=== PATIENT | male | born 1960 | race Caucasian/White ===

== ENCOUNTER 2017-02-12 14:57 | Inpatient (IN) | payer BC, OTHER ==
[~2017-02-12] VITALS: Ht 172.7 cm; Wt 87.8 kg
[2017-02-12] VITALS (7 sets, daily range): BP systolic 125–141; BP diastolic 82–96
[2017-02-12] MEDS ORDERED: MULT-1061 PO (15:09)
[2017-02-12] MEDS ORDERED: FISH1CAP15 PO (15:09)
[2017-02-12] MEDS ORDERED: DILT360C36 (15:09)
[2017-02-12] MEDS ORDERED: ASPIRIN 81 MG CHEW (CHILDREN'S ASA) PO ONE (15:15)
[2017-02-12 15:17] LABS: BASOPHILS % (AUTO) 0 % (0-10); EOSINOPHILS # (AUTO) 0.1 10^3/uL (0.0-0.3); EOSINOPHILS % (AUTO) 1 % (0-10); LYMPHOCYTES # (AUTO) 1.3 X 10^3 (1.0-4.0); LYMPHOCYTES % (AUTO) 18 % (12-44); MEAN CORPUSCULAR HEMOGLOBIN 29 PG (25-34); MEAN CORPUSCULAR HGB CONC 34 G/DL (32-36); MEAN CORPUSCULAR VOLUME 86 FL (80-99); MEAN PLATELET VOLUME 9.9 FL (7.4-10.4); MONOCYTES # (AUTO) 0.6 X 10^3 (0.0-1.0); MONOCYTES % (AUTO) 9 % (0-12); NEUTROPHILS % (AUTO) 72 % (42-75); PLATELET COUNT 271 10^3/uL (130-400); RED BLOOD COUNT 4.89 10^6/uL (4.35-5.85)
[2017-02-12 15:27] LABS: PROTHROMBIN TIME PATIENT 13.1 SEC (12.2-14.7)
--- NOTE | 2017-02-12 15:29 | Diagnostic Imaging Report ---
INDICATION: Chest tightness, shortness of air with exertion. TECHNIQUE: Single view chest 3:22 PM. CORRELATION STUDY: None FINDINGS: Heart size borderline. Vasculature within normal limits. The lungs are clear with no consolidating infiltrate. There is no significant effusion or pneumothorax. IMPRESSION: 1. Borderline heart size. Negative for acute abnormality. Dictated by: Dictated on workstation # [id number]
--- NOTE | 2017-02-12 15:34 | ED Chest Pain ---
General Chief Complaint: Chest Pain Stated Complaint: CHEST PAIN/SOA Nursing Triage Note: AMBULATED TO ROOM 03 WITH COMPLAINTS OF CHEST PAIN WITH EXERTION FOR OVER 1 MONTH BUT TODAY WAS CATCHING CALVES AND STARTED HAVING CHEST TIGHTNESS. Nursing Sepsis Screen: No Definite Risk Source: patient Exam Limitations: no limitations History of Present Illness Time seen by provider: 14:59 Initial Comments Here with report of chest pain on exertion that has been intermittent over the last month that is associated with central chest pressure and shortness of breath. He has strong family history and that his father had his first heart attack when he was 40 and ultimately at 63 from heart related problems. Patient denies nausea, vomiting, weakness or sweating. Denies other illness type symptoms. Timing/Duration: 1 week, getting worse, intermittent Severity/Quality: moderate, pressure, tightness Location: central Radiation: no radiation Activities at Onset: activity Prior CP/Workup: no prior chest pain Modifying Factors: worse with exercise, improves with rest ASA po PULLMAN CLERK: No NTG SL PULLMAN CLERK: No Associated Symptoms: No abdominal pain, No diaphoresis, No fever/chills, No nausea/vomiting, shortness of breath, No weakness Allergies and Home Medications Allergies Coded Allergies: No Known Drug Allergies (Unverified , 02/12/17) Home Medications Diltiazem HCl 360 Mg Cap.er.24h, #30 (Reported) Fish Oil/Dha/Epa 1 Each Capsule, 1,200 MG PO DAILY, (Reported) Multivit-Min/FA/Lycopen/Lutein 1 Each Tablet, 1 EACH PO DAILY, (Reported) Review of Systems Constitutional: see HPI, No chills, No fever EENTM: No Symptoms Reported Respiratory: See HPI, Denies Cough, SOA With Exertion Cardiovascular: Chest Pain, Denies Palpitations Gastrointestinal: No Symptoms Reported Genitourinary: No Symptoms Reported Musculoskeletal: no symptoms reported Skin: no symptoms reported All Other Systems Reviewed Negative Unless Noted: Yes Past Segseev-Epvggh-Zmbfmo Hx Patient Social History Alcohol Use: Occasionally Uses Recreational Drug Use: No Smoking Status: Never a Smoker Recent Foreign Travel: No Contact w/Someone Who Travel: No Recent Infectious Disease Expo: No Recent Hopitalizations: No Seasonal Allergies Seasonal Allergies: Yes Surgeries HX Surgeries: Yes (X4 BACK) Surgeries: Appendectomy Respiratory Hx Respiratory Disorders: No Cardiovascular Hx Cardiac Disorders: Yes Cardiac Disorders: Hypertension Neurological Hx Neurological Disorders: No Genitourinary Hx Genitourinary Disorders: No Gastrointestinal Hx Gastrointestinal Disorders: No Musculoskeletal Hx Musculoskeletal Disorders: Yes Musculoskeletal Disorders: Back Injury, Chronic Back Pain Endocrine Hx Endocrine Disorders: No HEENT HX ENT Disorders: No Cancer Hx Cancer: No Psychosocial Hx Psychiatric Problems: No Reviewed Nursing Assessment Reviewed/Agree w Nursing PMH: Yes Family Medical History Significant Family History: No Pertinent Family Hx Physical Exam Vital Signs Vital Sign - Last 12Hours 02/12/17 15:03 Temp 98.0 Pulse 90 Resp 16 B/P (MAP) 156/109 Pulse Ox 96 Capillary Refill : Less Than 3 Seconds General Appearance: No Apparent Distress, WD/WN Neck: Non Tender, Supple Respiratory: Lungs Clear, Normal Breath Sounds Cardiovascular: Regular Rate, Rhythm, No Murmur Gastrointestinal: Non Tender, Soft Extremity: Non Tender, No Calf Tenderness Neurologic/Psychiatric: Alert, Oriented x3 Skin: Normal Color, Warm/Dry Progress/Results/Core Measures Results/Orders Lab Results Laboratory Tests Test 02/12/17 15:12 Range/Units White Blood Count 7.0 4.3-11.0 10^3/uL Red Blood Count 4.89 4.35-5.85 10^6/uL Hemoglobin 14.1 13.3-17.7 G/DL Hematocrit 42 40-54 % Mean Corpuscular Volume 86 80-99 FL Mean Corpuscular Hemoglobin 29 25-34 PG Mean Corpuscular Hemoglobin Concent 34 32-36 G/DL Red Cell Distribution Width 13.0 10.0-14.5 % Platelet Count 271 130-400 10^3/uL Mean Platelet Volume 9.9 7.4-10.4 FL Neutrophils (%) (Auto) 72 42-75 % Lymphocytes (%) (Auto) 18 12-44 % Monocytes (%) (Auto) 9 0-12 % Eosinophils (%) (Auto) 1 0-10 % Basophils (%) (Auto) 0 0-10 % Neutrophils # (Auto) 5.0 1.8-7.8 X 10^3 Lymphocytes # (Auto) 1.3 1.0-4.0 X 10^3 Monocytes # (Auto) 0.6 0.0-1.0 X 10^3 Eosinophils # (Auto) 0.1 0.0-0.3 10^3/uL Basophils # (Auto) 0.0 0.0-0.1 10^3/uL Prothrombin Time 13.1 12.2-14.7 SEC INR Comment 1.0 0.8-1.4 Activated Partial Thromboplast Time 34 24-35 SEC D-Dimer 0.31 0.00-0.49 UG/ML Sodium Level 142 135-145 MMOL/L Potassium Level 4.0 3.6-5.0 MMOL/L Chloride Level 108 H 98-107 MMOL/L Carbon Dioxide Level 24 21-32 MMOL/L Anion Gap 10 5-14 MMOL/L Blood Urea Nitrogen 20 H 7-18 MG/DL Creatinine 1.28 0.60-1.30 MG/DL Estimat Glomerular Filtration Rate 58 BUN/Creatinine Ratio 16 Glucose Level 91 70-105 MG/DL Calcium Level 9.3 8.5-10.1 MG/DL Magnesium Level 2.4 1.8-2.4 MG/DL Total Bilirubin 0.3 0.1-1.0 MG/DL Aspartate Amino Transf (AST/SGOT) 17 5-34 U/L Alanine Aminotransferase (ALT/SGPT) 21 0-55 U/L Alkaline Phosphatase 61 40-136 U/L Myoglobin 64.7 10.0-92.0 NG/ML Troponin I < 0.30 <0.30 NG/ML B-Type Natriuretic Peptide < 10.0 <100.0 PG/ML Total Protein 7.3 6.4-8.2 G/DL Albumin 4.4 3.2-4.5 G/DL Lipase 28 8-78 U/L My Orders Orders - GALE GRIGGS MD Cbc With Automated Diff (02/12/17 15:07) Magnesium (02/12/17 15:07) Chest 1 View, Ap/Pa Only (02/12/17 15:07) Ekg Tracing (02/12/17 15:07) Cardiac Profile 1 (02/12/17 15:07) Comprehensive Metabolic Panel (02/12/17 15:07) Myoglobin Serum (02/12/17 15:07) Protime With Inr (02/12/17 15:07) Partial Thromboplastin Time (02/12/17 15:07) O2 (02/12/17 15:07) Monitor-Rhythm Ecg Trace Only (02/12/17 15:07) Lipid Panel (02/13/17 06:00) Aspirin Chewable Tablet (Baby Aspirin Ch (02/12/17 15:15) Saline Lock/Iv-Start (02/12/17 15:07) Lipase (02/12/17 15:07) BNP (02/12/17 15:07) Fibrin Degradation Products (02/12/17 15:07) Medications Given in ED Current Medications Medications Dose Ordered Sig/Dominga Route Start Time Stop Time Status Last Admin Dose Admin Aspirin 324 mg ONCE ONCE PO 02/12/17 15:15 02/12/17 15:16 DC 02/12/17 15:40 324 MG Vital Signs/I&O Vital Sign - Last 12Hours 02/12/17 15:03 Temp 98.0 Pulse 90 Resp 16 B/P (MAP) 156/109 Pulse Ox 96 Blood Pressure Mean: 125 Progress Note : Progress Note Seen and evaluated. IV, labs, EKG and chest x-ray ordered. ASA 324 mg by mouth given. Patient without pain so nitroglycerin withheld. Monitor patient. 1604 labs and findings reviewed and reviewed with patient. Patient has significant family history which is concerning and would benefit from further evaluation. Patient is high-risk. Case discussed with Dr. Oden who accepts patient for admission. Case discussed with Dr. Simpson who accepts patient in consult. Patient and family agree with admission. Admit, observation status. ECG Initial ECG Impression Date: Feb 12, 2017 Initial ECG Impression Time: 15:05 Initial ECG Rate: 90 Initial ECG Rhythm: Normal Sinus Initial ECG Comparisson: No Previous ECG Available Comment Sinus rhythm with left anterior fascicular block. Left axis deviation. No evidence of ST elevation FL. No previous available for comparison. Interpreted by me. Diagnostic Imaging Diagonstic Imaging: Xray Plain Films/CT/US/NM/MRI: chest Comments NAME: [facility] REC#: [id number] PT STATUS: REG ER : 1960 PHYSICIAN: GALE GRIGGS MD ADMIT DATE: 02/12/17/ER Signed Date of Exam: 02/12/17 CHEST 1 VIEW, AP/PA ONLY INDICATION: Chest tightness, shortness of air with exertion. TECHNIQUE: Single view chest 3:22 PM. CORRELATION STUDY: None FINDINGS: Heart size borderline. Vasculature within normal limits. The lungs are clear with no consolidating infiltrate. There is no significant effusion or pneumothorax. IMPRESSION: 1. Borderline heart size. Negative for acute abnormality. Dictated by: Dictated on workstation # [id number] Dict: 02/12/17 1526 Trans: 02/12/17 1526 Interpreted by: LUISITO ATKINSON DO Electronically signed by: LUISITO ATKINSON DO 02/12/17 1526 Departure Communication Time/Spoke to Admitting Phy: 16:04 Time/Spoke to Consulting Physi: 16:06 Impression Impression: Primary Impression: Chest pain Qualified Codes: R07.2 - Precordial pain Disposition: ADMITTED INPATIENT Condition: Stable Decision to Admit Reason: Admit from ER (General) Decision to Admit/Date: Feb 12, 2017 Time/Decision to Admit Time: 16:04 GALE GRIGGS MD Feb 12, 2017 15:34
[2017-02-12 15:36] LABS: ALANINE AMINOTRANSFERASE 21 U/L (0-55); ALBUMIN 4.4 G/DL (3.2-4.5); ANION GAP 10 MMOL/L (5-14); ASPARTATE AMINO TRANSFERASE 17 U/L (5-34); BILIRUBIN,TOTAL 0.3 MG/DL (0.1-1.0); BLOOD UREA NITROGEN 20 MG/DL (7-18); BUN/CREATININE RATIO 16; CALCIUM 9.3 MG/DL (8.5-10.1); CARBON DIOXIDE 24 MMOL/L (21-32); CHLORIDE 108 MMOL/L (98-107); CREATININE SERUM 1.28 MG/DL (0.60-1.30); GFR ESTIMATED 58; GLUCOSE 91 MG/DL (70-105); LIPASE 28 U/L (8-78); MAGNESIUM 2.4 MG/DL (1.8-2.4); SODIUM 142 MMOL/L (135-145); TOTAL PROTEIN 7.3 G/DL (6.4-8.2)
[2017-02-12 15:42] LABS: MYOGLOBIN SERUM 64.7 NG/ML (10.0-92.0)
--- NOTE | 2017-02-12 17:01 | Cardiology History & Physical ---
HPI-Cardiology Cardiology Consultation Date of Consultation 02/12/17 Date of Admission Indication: chest pain HPI 56 years old gentleman with history of hypertension, hyperlipidemia, strong family history of heart disease, started having recurrent episodes of chest pain over the last month described as dull achiness in the retrosternal area exacerbated by exertion, relieved by rest, over the last week his pain became significantly worse. Today had significant chest pain with minimal exertion associated with shortness of breath and diaphoresis. Patient became concerned and came into the emergency room reported that the pain has relieved with resting but it has been occurring more frequently and lasting longer with less exercise. I discussed with him the management plan he has multiple risk factors discussed the possibility of stress test versus cardiac catheterization , patient and his and fairly anxious, due to the strong family history of heart disease with his father who had heart attack in his 40s and multiple cousins with heart attacks patient requested to proceed with cardiac catheterization. PMH-Cardiology Seasonal Allergies Seasonal Allergies: Yes Surgeries HX Surgeries: Yes (X4 BACK) Respiratory Hx Respiratory Disorders: No Cardiovascular Hx Cardiovascular Disorders: Yes Neurological Hx Neurological Disorders: No Genitourinary Hx Genitourinary Disorders: No Gastrointestinal Hx Gastrointestinal Disorders: No Musculoskeletal Hx Musculoskeletal Disorders: Yes Musculoskeletal Disorders: Back Injury, Chronic Back Pain Endocrine Hx Endocrine Disorders: No HEENT HX ENT Disorders: No Cancer Hx Cancer: No Psychosocial Hx Psychiatric Problems: No Other PMHx Other PMHx: past medical history as discussed below Social History Patient Social History Marrital Status: Alcohol Use: Occasionally Uses Recreational Drug Use: No Smoking: Never smoker Recent Foreign Travel: No Contact w/other who traveled: No Recent Infectious Disease Expo: No Family Hx Significant Family History: No Pertinent Family Hx Other Strong family history of heart disease with father had myocardial infarction in his 40s, multiple family members with heart disease and heart attacks ROS-Cardiology Review of Systems General: No Chills, No Night Sweats, No Fatigue, Malaise, No Appetite HEENT: No Head Aches, No Visual Changes, No Eye Pain, No Ear Pain, No Dysphasia , No Sinus Congestion, No Post Nasal Drip, No Sore Throat Pulmonary: Dyspnea, No Cough, No Pleuritic Chest Pain Cardiovascular: Chest Pain, No: Edema, Lt Headedness, Orthopnea, Palpitations, Paroxysmal Noc. Dyspnea Gastrointestinal: No: Abdominal Pain, Constipation, Diarrhea, Hematochezia, Melena, Nausea, Vomiting Genitourinary: No Dysuria, No Frequency, No Incontinence, No Hematuria, No Retention Musculoskeletal: No: arm pain, back pain, foot pain, hand pain, leg pain, neck pain, shoulder pain Neurological: No: Change in speech, Confusion, Incoordination, Numbness, Seizures, Weakness Home Medications & Allergies Allergies: Coded Allergies: No Known Drug Allergies (Unverified , 02/12/17) Home Medication List Reviewed: Yes Exam-Cardiology Vital Signs Vital Signs Date Time Temp Pulse Resp B/P (MAP) Pulse Ox O2 Delivery O2 Flow Rate FiO2 02/12/17 15:03 98.0 90 16 156/109 96 Exam General Appearance: Alert, Oriented X3, Cooperative, No Acute Distress HEENT: Atraumatic, PERRLA Respiratory: Clear to Auscultation, Normal Air Movement Cardiovascular: Regular Rate, Normal S1, Normal S2, No Murmurs, Other (S3 present) Abdominal: Normal Bowel Sounds, Soft, No Tenderness, No Hepatosplenomegaly, No Masses Extremities: No Clubbing, No Cyanosis, No Edema, Normal Pulses, No Tenderness/ Swelling Skin: No Rashes, No Breakdown, No Significant Lesion Neuro: Normal Gait, Normal Speech, Strength at 5/5 X4 Ext, Normal Tone, Sensation Intact Psych/Mental Status: Mental Status NL, Mood NL Results Labs Labs Laboratory Tests 02/12/17 15:12: White Blood Count 7.0, Red Blood Count 4.89, Hemoglobin 14.1, Hematocrit 42, Mean Corpuscular Volume 86, Mean Corpuscular Hemoglobin 29, Mean Corpuscular Hemoglobin Concent 34, Red Cell Distribution Width 13.0, Platelet Count 271, Mean Platelet Volume 9.9, Neutrophils (%) (Auto) 72, Lymphocytes (%) (Auto) 18, Monocytes (%) (Auto) 9, Eosinophils (%) (Auto) 1, Basophils (%) (Auto) 0, Neutrophils # (Auto) 5.0, Lymphocytes # (Auto) 1.3, Monocytes # (Auto) 0.6, Eosinophils # (Auto) 0.1, Basophils # (Auto) 0.0, Prothrombin Time 13.1, INR Comment 1.0, Activated Partial Thromboplast Time 34, D-Dimer 0.31, Sodium Level 142, Potassium Level 4.0, Chloride Level 108H, Carbon Dioxide Level 24, Anion Gap 10, Blood Urea Nitrogen 20H, Creatinine 1.28, Estimat Glomerular Filtration Rate 58, BUN/Creatinine Ratio 16, Glucose Level 91, Calcium Level 9.3, Magnesium Level 2.4, Total Bilirubin 0.3, Aspartate Amino Transf (AST/SGOT) 17, Alanine Aminotransferase (ALT/SGPT) 21, Alkaline Phosphatase 61, Myoglobin 64.7 , Troponin I < 0.30, B-Type Natriuretic Peptide < 10.0, Total Protein 7.3, Albumin 4.4, Lipase 28 A/P-Cardiology Admission Diagnosis Unstable angina Coronary artery disease Hypertension Hyperlipidemia Family history of heart disease Assessment/Plan Unstable angina, accelerating angina, current enzymes and EKG are normal. Patient is having chest pain with minimal exertion, nonreproducible pain suggestive of coronary artery disease multiple risk factors, discussed in length the management plan possible history of stress test versus cardiac catheterization, explained both options benefit and expected results, patient and his requested to proceed with cardiac catheterization, procedure was explained in length all pros and cons were explained. I will proceed with the procedure today. Coronary artery disease, Hypertension, restart home medication monitor blood pressure Hyperlipidemia, monitor lipids Strong family history of heart disease History of appendectomy, history of back surgery about 10 years ago Clinical Quality Measures AMI/AHF: ASA po Prior to arrival: ALDO Murphy MD Feb 12, 2017 17:01
--- NOTE | 2017-02-12 17:02 | Cardiac Procedure Note-CS/ASA ---
Pre-Procedure Note Pre-Op Procedure Note H&P Reviewed The H&P was reviewed, patient examined and no changes noted. Date H&P Reviewed: Feb 12, 2017 Time H&P Reviewed: 17:02 Conscious Sedation Pre-Proced Time Reviewed: 17:02 ASA Class: 3 Airway Mallampati Classification: ([place] appropriate class) I. II. III, IV Lungs Heart ASA score ASA 1: a normal healthy patient ASA 2: a patient with a mild systemic disease (mid diabetes, controlled hypertension, obesity x ASA 3: a patient with a severe systemic disease that limits activity (angina , COPD, prior Myocardial infarction) ASA 4: a patient with an incapacitating disease that is a constant threat to life (CHF, renal failure) ASA 5: a moribund patient not expected to survive 24 hrs. (ruptured aneurysm) ASA 6: a declared brain patient whose organs are being harvested. For emergent operations, add the letter E after the classification Grade 3 Sedation Plan: Analgesia, Amnesia, Plan communicated to team members, Discussed options with patient/fam, Discussed risks with patient/fam Note The patient is an appropriate candidate to undergo the planned procedure, sedation, and anesthesia. The patient immediately re-assessed prior to indication. ALDO HAMMER MD Feb 12, 2017 17:02
[2017-02-12] MEDS ORDERED: LIDOCAINE 1% INJ 20 ML (XYLOCAINE) VIAL ONE (17:17)
[2017-02-12] MEDS ORDERED: NS IV 1000 ML 1,000 ML ONE (17:17)
[2017-02-12] MEDS ORDERED: fentaNYL INJECTION 100 MCG/2 ML AMP ONE (17:17)
[2017-02-12] MEDS ORDERED: HEParin (CATH LAB) 2,000 ML IV ONE (17:17)
[2017-02-12] MEDS ORDERED: MIDAZOLAM 5 MG/5 ML (VERSED) VIAL ONE (17:17)
[2017-02-12] MEDS ORDERED: HEParin 1000 UNIT/ML (10ML VIAL) FOR BOLUS ONE (17:19)
[2017-02-12] MEDS ORDERED: NITROGLYCERIN DRIP 25 MG/D5W 250 ML IV ONE (17:20)
[2017-02-12] MEDS ORDERED: EPTIFIBATIDE DRIP 100 ML IV ONE (17:31)
[2017-02-12] MEDS ORDERED: EPTIFIBATIDE BOLUS 20 ML IV ONE (17:33)
[2017-02-12] MEDS ORDERED: TICAGRELOR 90 MG TABLET (BRILINTA) PO ONE (17:47)
[2017-02-12] MEDS ORDERED: NS IV 1000 ML 1,000 ML IV SCH (17:50)
[2017-02-12] MEDS ORDERED: ISOSORBIDE MONONITRATE 30 MG (IMDUR) TAB PO NR (18:00)
[2017-02-12] MEDS ORDERED: PATIENT MAY USE OWN MEDS, ALL PO SCH (18:00)
[2017-02-12] MEDS ORDERED: DILT360C40 PO (19:06)
[2017-02-12] MEDS ORDERED: CATHETER FLUSH 10 ML SYR IV PRN (20:45)
[2017-02-12] MEDS: ATORVASTATIN 80 MG (LIPITOR) TABLET PO SCH (22:30)
[2017-02-12] MEDS: TICAGRELOR 90 MG TABLET (BRILINTA) PO SCH (22:30)
[2017-02-13] VITALS (11 sets, daily range): BP systolic 111–134; BP diastolic 71–98
[2017-02-13 04:20] LABS: MEAN PLATELET VOLUME 10.4 FL (7.4-10.4); RED BLOOD COUNT 4.12 10^6/uL (4.35-5.85); RED CELL DISTRIBUTION WIDTH 12.9 % (10.0-14.5); WHITE BLOOD COUNT 7.3 10^3/uL (4.3-11.0)
[2017-02-13 04:49] LABS: ANION GAP 9 MMOL/L (5-14); BLOOD UREA NITROGEN 19 MG/DL (7-18); BUN/CREATININE RATIO 20; CALCIUM 8.3 MG/DL (8.5-10.1); CARBON DIOXIDE 23 MMOL/L (21-32); CHLORIDE 110 MMOL/L (98-107); CHOLESTEROL 215 MG/DL (< 200); CREATININE SERUM 0.95 MG/DL (0.60-1.30); DIRECT LDL 158 MG/DL (1-129); GFR ESTIMATED > 60; GLUCOSE 100 MG/DL (70-105); POTASSIUM 3.8 MMOL/L (3.6-5.0); SODIUM 142 MMOL/L (135-145); TRIGLYCERIDES 150 MG/DL (<150); VLDL CHOLESTEROL 30 MG/DL (5-40)
[2017-02-13 05:03] LABS: TROPONIN I 0.76 NG/ML (<0.30)
[2017-02-13] MEDS ORDERED: POTASSIUM CL 10MEQ/50ML IVPB 50 ML IV SCH (06:00)
[2017-02-13] MEDS ORDERED: MAGNESIUM 1 GM/100 ML IVPB 100 ML IV SCH (06:00)
[2017-02-13] MEDS: KCL 20 MEQ TAB (K-DUR) PO SCH (06:38)
--- NOTE | 2017-02-13 07:17 | Cardiology Progress Note ---
Subjective Subjective/Events-last exam patient is laying down in bed, feeling better, no further episodes of chest pain , groin is healing well. No shortness of breath or palpitation. Review of Systems General: No Chills, No Night Sweats, No Fatigue, No Malaise, No Appetite, No Other HEENT: No Head Aches, No Visual Changes, No Eye Pain, No Ear Pain, No Dysphasia , No Sinus Congestion, No Post Nasal Drip, No Sore Throat, No Other Pulmonary: No Dyspnea, No Cough, No Pleuritic Chest Pain, No Other Cardiovascular: No: Chest Pain, Edema, Lt Headedness, Orthopnea, Other, Palpitations, Paroxysmal Noc. Dyspnea Objective-Cardiology Exam Last Set of Vital Signs Vital Signs 02/12/17 02/12/17 02/13/17 18:30 22:00 06:00 Temp 97.2 Pulse 47 Resp 16 B/P (MAP) 119/93 Pulse Ox 99 O2 Delivery Room Air Capillary Refill : Less Than 3 Seconds I&O Bad tableGeneral: Alert, Oriented X3, Cooperative, No Acute Distress HEENT: Atraumatic, PERRLA Neck: Supple, No JVD Lungs: Clear to Auscultation, Normal Air Movement Heart: Regular Rate, Normal S1, Normal S2, No Murmurs, Other (S3 present) Abdomen: Normal Bowel Sounds, Soft, No Tenderness, No Hepatosplenomegaly, No Masses Extremities: No Clubbing, No Cyanosis, No Edema, Normal Pulses, No Tenderness/ Swelling Skin: No Rashes, No Breakdown, No Significant Lesion Neuro: Normal Gait, Normal Speech, Strength at 5/5 X4 Ext, Normal Tone, Sensation Intact Psych/Mental Status: Mental Status NL, Mood NL Results Lab Laboratory Tests 02/12/17 15:12 02/13/17 03:40 A/P-Cardiology Admission Diagnosis Unstable angina Coronary artery disease Hypertension Hyperlipidemia Family history of heart disease Assessment/Plan Unstable angina, non-ST elevation myocardial infarction, status post emergency cardiac catheterization with complex intervention, large stent to the LAD using 3.023 mm Xience Alpine deployed to the ostium/proximal LAD with excellent results. expanded to 3.5 mm with good results. Still having a lesion in the distal right coronary artery that is a smaller artery which will be evaluated in about a week. I will monitor at this time. Coronary artery disease, status post cardiac catheterization as described above. Continue to monitor, no further episodes of chest pain was reported Bradycardia, sick sinus syndrome exacerbated by beta blockers, I will change Toprol to Lopressor 12.5 mg twice daily and monitor his tolerance and response. Hypertension, continue on current medication monitor blood pressure Hyperlipidemia, started on Lipitor 80 mg daily. Continue to monitor Strong family history of heart disease History of appendectomy, history of back surgery about 10 years ago Clinical Quality Measures AMI/AHF: ASA po Prior to arrival: ALDO Murphy MD Feb 13, 2017 07:17
--- NOTE | 2017-02-13 09:06 | CARDIAC CATHETERIZATION ---
DATE OF SERVICE: 02/12/2017 BRIEF HISTORY: The patient was admitted through the emergency room with unstable angina, he was brought for emergency cardiac catheterization. PROCEDURE NOTE: After explaining the procedure to the patient, all pros and cons were explained, all questions were answered. The patient signed the consent and he was placed in the cardiac catheterization laboratory. Right groin was prepped in a sterile fashion. Local anesthesia applied to the right groin. A 6-Sloven[place] sheath was placed in the right femoral artery. A combination of right and left Erika' catheters were used to explore the right and left coronary systems. Multiple views were obtained. Pigtail catheter advanced to the left ventricular cavity. Left ventriculogram was done. Pullback LV to aorta was done. Pressure was measured at that time. The patient was noted to have 99% proximal LAD stenosis. I decided to proceed with percutaneous invention. The patient was given 5000 units of heparin. A 3.5 guide was advanced to the left main, then BMW wire was advanced through the LAD and parked distally. Initial inflation as with 2.5 x 20 mm Emerge balloon. There was a ruptured plaque. The patient had ST elevation. Additional 2000 units of heparin and double bolus of Integrilin and Integrilin drip was initiated. Then I did multiple inflations of the balloon and then proceeded with placement of 3.0 x 23 mm Xience Alpine stent deployed under 15 atmospheres. The patient continued to have ST elevation with each balloon inflation. The stent was well opposed but I was concerned about the mid and distal portion of that stent. I proceeded with advancement of an NC Quantum balloon 3.5 x 20 mm placed, inflated up to 3.6 mm with multiple inflations. With each inflation, there was worsening of ST elevation. At the end of the balloon, the patient was given intracoronary nitroglycerin again and repeat angiogram showed excellent results, no residual stenosis. At the end of the procedure, sheath was removed. Mynx device deployed, hemostasis achieved. TOTAL CONTRAST USED: 200 mL. TOTAL RADIATION TIME: 1577 milligray. FINDINGS: ANATOMY: 1. Left main coronary artery is bifurcating into a left anterior descending and left circumflex artery with no obstructive disease. 2. Left anterior descending artery has 99% proximal/ostial stenosis. Successful deployment of 3.0 x 23 mm Xience Alpine stent expanded to 3.6 mm with excellent results. 3. Left circumflex artery is a large dominant artery with mild nonobstructive disease 4. Right coronary artery is nondominant artery with 70% stenosis distally. 5. Left ventriculogram was done in the right anterior oblique position. Left ventricle is normal in size with normal systolic function, estimated ejection fraction 60%. CONCLUSION: 1. Subtotal occlusion of the left anterior descending with 99% stenosis with eccentric plaque and ulcerated plaque. Successful balloon angioplasty, then deployment of drug-eluting stent Xience Alpine 3.0 x 23 mm expanded to 3.6 mm at the ostium and proximal left anterior descending with excellent results. No residual stenosis. 2. 70% distal right coronary artery stenosis, small artery, nondominant artery which will require evaluation later with possible intervention. 3. Large dominant circumflex artery with mild disease, nonobstructive disease. 4. Normal left ventricular size and systolic function, estimated ejection fraction 60%. DISCUSSION AND RECOMMENDATIONS: I will continue maximizing medical therapy. Further recommendation will follow based on his progression. Job ID: [id number] DocumentID: [id number] Dictated Date: 02/12/2017 18:01:15 Assembly Leader Date: 02/13/2017 09:06:28 Dictated By: ALDO HAMMER MD
[2017-02-13] MEDS: ASPIRIN E.C. 81 MG (ECOTRIN) TAB PO SCH (09:23)
[2017-02-13] MEDS: TICAGRELOR 90 MG TABLET (BRILINTA) PO SCH ×2 (09:23→21:11)
[2017-02-13] MEDS: ISOSORBIDE MONONITRATE 30 MG (IMDUR) TAB PO SCH (09:23)
[2017-02-13] MEDS: meTOprolol TARTRATE 25 MG (LOPRESSOR) TABLET PO SCH ×2 (09:23→21:11)
[2017-02-13] MEDS: ATORVASTATIN 80 MG (LIPITOR) TABLET PO SCH (21:10)
[2017-02-14] VITALS: BP 112/86
[2017-02-14 04:00] VITALS: BP 132/90
[2017-02-14 04:17] LABS: BASOPHILS % (AUTO) 0 % (0-10); EOSINOPHILS # (AUTO) 0.1 10^3/uL (0.0-0.3); EOSINOPHILS % (AUTO) 1 % (0-10); LYMPHOCYTES # (AUTO) 1.5 X 10^3 (1.0-4.0); LYMPHOCYTES % (AUTO) 19 % (12-44); MEAN CORPUSCULAR HEMOGLOBIN 29 PG (25-34); MEAN CORPUSCULAR HGB CONC 33 G/DL (32-36); MEAN CORPUSCULAR VOLUME 87 FL (80-99); MEAN PLATELET VOLUME 10.1 FL (7.4-10.4); MONOCYTES # (AUTO) 0.6 X 10^3 (0.0-1.0); MONOCYTES % (AUTO) 8 % (0-12); NEUTROPHILS # (AUTO) 5.5 X 10^3 (1.8-7.8); NEUTROPHILS % (AUTO) 72 % (42-75); PLATELET COUNT 239 10^3/uL (130-400); RED BLOOD COUNT 4.33 10^6/uL (4.35-5.85); RED CELL DISTRIBUTION WIDTH 13.2 % (10.0-14.5); WHITE BLOOD COUNT 7.7 10^3/uL (4.3-11.0)
[2017-02-14 04:34] LABS: ANION GAP 9 MMOL/L (5-14); BLOOD UREA NITROGEN 19 MG/DL (7-18); BUN/CREATININE RATIO 19; CALCIUM 8.9 MG/DL (8.5-10.1); CARBON DIOXIDE 23 MMOL/L (21-32); CHLORIDE 110 MMOL/L (98-107); CREATININE SERUM 0.98 MG/DL (0.60-1.30); GFR ESTIMATED > 60; GLUCOSE 90 MG/DL (70-105); POTASSIUM 3.9 MMOL/L (3.6-5.0); SODIUM 142 MMOL/L (135-145)
[2017-02-14] MEDS: KCL 20 MEQ TAB (K-DUR) PO SCH (05:32)
[2017-02-14 07:52] VITALS: BP 132/90
[2017-02-14] MEDS ORDERED: ASPI-983 PO (08:00)
[2017-02-14] MEDS ORDERED: ISOS30TA3 PO (08:00)
[2017-02-14] MEDS ORDERED: METO-333 PO (08:00)
[2017-02-14] MEDS ORDERED: ATOR80TA76 PO (08:00)
[2017-02-14] MEDS ORDERED: TICA90TA PO (08:00)
--- NOTE | 2017-02-14 08:01 | Discharge Inst-Post CATH ---
Discharge Inst-CATH Post Cardiac Cath D/C Inst Follow Up/Plan Appointment with Dr. Simpson's office next week CARDIAC CATH DISCHARGE INSTRUCTIONS *Hold Metformin for 48 hours post heart cath. ACTIVITY * Go Home directly and rest. * Limit activity of the leg (or wrist if it was used) for 7 days including aerobics, swimming, jogging, bicycling, etc. * Restrict stair-climbing for 7 days if possible, if not, climb up with your non -cath leg, then bring together on the same step. * Avoid lifting, pushing, pulling or excessive movement of the affected extremity for 7 days. * Customary sexual activity may be resumed after 2 days-use caution not to use a position that strains or causes pain to the affected extremity. * No driving for 24 hours. * NO SMOKING. * Avoid straining for bowel movements for 7 days. * Gentle walking on level ground is allowed. * Returning to work will depend on the type of procedure and the results. Your doctor will discuss this with you. CALL YOUR DOCTOR FOR ANY OF THE FOLLOWING: *If bleeding from the puncture site occurs- Apply gentle pressure to site with clean cloth and call your doctor or EMS. * If a knot or lump forms under the skin, increases in size, or causes pain. * If bruising appears to be worsening or moving further down your leg instead of disappearing. * Temperature above 101 F. CARE OF YOUR GROIN INCISION; * Bruising or purple discoloration of the skin near the puncture site is common. * You may shower only, no bathtub bathing for 5 days. Be careful to avoid slipping as your leg may feel stiff. * If a closure device was used on your femoral artery, please see the attached guide regarding care of the device and your leg. * REMOVE the dressing from your groin the next day after your procedure in the shower. CARE OF YOUR WRIST INCISION; * Bruising or purple discoloration of the skin near the puncture site is common. * You may shower. * DO NOT submerge wrist. * Remove dressing in 24 hours. ALDO SIMPSON MD Feb 14, 2017 08:00
--- NOTE | 2017-02-14 08:05 | Cardiology Discharge Summary ---
Diagnosis/Chief Complaint Date of Admission Feb 12, 2017 at 16:54 Date of Discharge February 14, 2017 Admission Diagnosis Unstable angina Coronary artery disease Hypertension Hyperlipidemia Family history of heart disease Discharge Diagnosis unstable angina Non-ST elevation myocardial infarction Coronary artery disease Hypertension Hyperlipidemia Chief Complaint/HPI Chief Complaint/HPI 56 years old gentleman admitted with unstable angina, active chest pain, taken for emergency cardiac catheterization which showed subtotal occlusion of the LAD with eccentric plaque. Underwent angioplasty and stenting. Has been borderline bradycardic and hypertensive. Currently tolerating medication well, groin is healing well. Denied any further episodes of chest pain or shortness of breath. For further information please review the history and physical examination. Discharge Summary Hospital Course Hospital Course Unstable angina, non-ST elevation myocardial infarction, status post emergency cardiac catheterization with complex intervention, large stent to the LAD using 3.023 mm Xience Alpine deployed to the ostium/proximal LAD with excellent results. expanded to 3.5 mm with good results. Still having a lesion in the distal right coronary artery that is a smaller artery which will be evaluated in future. Plan to discharge home today. Coronary artery disease, status post cardiac catheterization stent to an eccentric lesion in the LAD using 3.023 millimeter Xience Alpine expanded to 3.5 mm with excellent results. Patient has a lesion in the distal right coronary artery that is smaller artery which will be addressed at a later point , groin is healing well. Continue to monitor Bradycardia, sick sinus syndrome exacerbated by beta blockers, Tolerating Lopressor 12.5 mg twice daily well, discontinue Tiazac. Monitor as an outpatient Hypertension, continue on current medication monitor blood pressure Hyperlipidemia, started on Lipitor 80 mg daily. Continue to monitor Strong family history of heart disease History of appendectomy, history of back surgery about 10 years ago Labs Laboratory Tests 02/12/17 15:12: Chloride Level 108H, Blood Urea Nitrogen 20H 02/13/17 03:40: Chloride Level 110H, Blood Urea Nitrogen 19H, Red Blood Count 4.12L, Hemoglobin 11.8L, Hematocrit 36L, Calcium Level 8.3L, Troponin I 0.76*H, Triglycerides Level 150H, Cholesterol Level 215H, LDL Cholesterol Direct 158H, HDL Cholesterol 31L 02/14/17 04:05: Chloride Level 110H, Blood Urea Nitrogen 19H, Red Blood Count 4.33L, Hemoglobin 12.4L, Hematocrit 38L Procedures None. Discharge Physical Examination Allergies: Coded Allergies: No Known Drug Allergies (Unverified , 02/12/17) Vitals & I&Os Vital Signs Date Time Temp Pulse Resp B/P (MAP) Pulse Ox O2 Delivery O2 Flow Rate FiO2 02/14/17 07:52 97.5 59 16 132/90 Room Air 02/14/17 04:00 94 General Appearance: Alert, Oriented X3, Cooperative, No Acute Distress HEENT: Atraumatic, PERRLA Respiratory: Clear to Auscultation, Normal Air Movement Cardiovascular: Regular Rate, Normal S1, Normal S2, No Murmurs Abdominal: Normal Bowel Sounds, Soft, No Tenderness, No Hepatosplenomegaly, No Masses Extremities: No Clubbing, No Cyanosis, No Edema, Normal Pulses, No Tenderness/ Swelling Skin: No Rashes, No Breakdown, No Significant Lesion Neuro: Normal Gait, Normal Speech, Strength at 5/5 X4 Ext, Normal Tone, Sensation Intact, Cranial Nerves 3-12 NL, Reflexes 2+ Psych/Mental Status: Mental Status NL, Mood NL Discharge Home Medications Reviewed and agree with Discharge Medication list on patient's Discharge Instruction sheet Instructions to Patient/Family Please see electonic discharge instructions given to patient. Clinical Quality Measures AMI/AHF: ASA po Prior to arrival: No DVT/VTE Risk/Contraindication: VTE Present on Admission: No Risk Factor Score Per Nursin RFS Level Per Nursing on Admit: 1=Low/No VTE PPX ALDO HAMMER MD Feb 14, 2017 08:05
[2017-02-14] MEDS: ASPIRIN E.C. 81 MG (ECOTRIN) TAB PO SCH (08:25)
[2017-02-14] MEDS: ISOSORBIDE MONONITRATE 30 MG (IMDUR) TAB PO SCH (08:25)
[2017-02-14] MEDS: meTOprolol TARTRATE 25 MG (LOPRESSOR) TABLET PO SCH (08:25)
[2017-02-14] MEDS: TICAGRELOR 90 MG TABLET (BRILINTA) PO SCH (08:25)
[2017-02-14 08:27] VITALS: BP 142/98
== END 2017-02-14 08:45 | disposition home or self-care (01) | DRG 247 ==
LOC: CATH 15:00 → 4TH 16:09 → UNDOADMOB 16:09 → CATH 16:53 → ICU 16:54 → CATH 18:30 → ICU 18:30 → UNDOFXSDCACCOM 02-13 08:00 → UNDOFXSDCRRACCOM 02-13 08:00 → UNDOFXSDCSVC 02-13 08:00 → ICU 02-13 14:20
PROVIDERS: ADMIT Internal Medicine Cardiovascular Disease; ATTEND Internal Medicine Cardiovascular Disease
PROC: 027034Z Dilation of Coronary Artery, One Artery with Drug-eluting Intraluminal Device, Percutaneous Approach (ICD-10-PCS; principal; 2017-02-12)
PROC: 4A023N7 Measurement of Cardiac Sampling and Pressure, Left Heart, Percutaneous Approach (ICD-10-PCS; 2017-02-12)
PROC: B2151ZZ Fluoroscopy of Left Heart using Low Osmolar Contrast (ICD-10-PCS; 2017-02-12)
PROC: B2111ZZ Fluoroscopy of Multiple Coronary Arteries using Low Osmolar Contrast (ICD-10-PCS; 2017-02-12)
DX: I21.4 Non-ST elevation (NSTEMI) myocardial infarction (principal); I25.110 Atherosclerotic heart disease of native coronary artery with unstable angina pectoris; I49.5 Sick sinus syndrome; I10 Essential (primary) hypertension; E78.5 Hyperlipidemia, unspecified; Z82.49 Family history of ischemic heart disease and other diseases of the circulatory system
CPT/HCPCS: 36415; 71010; 80048; 80053; 80061; 83690; 83735; 83874; 83880; 84484; 85025; 85027; 85379; 85610; 85730; 93005; 93041; 93458

== ENCOUNTER 2017-02-25 07:07 | Day surgery (SDC) | payer BC ==
[~2017-02-25] VITALS: Ht 172.7 cm; Wt 86.2 kg
[~2017-02-25 07:07] MED LIST: ASPI-983 PO; ATOR80TA76 PO; DILT360C36; DILT360C40 PO; FISH1CAP15 PO; ISOS30TA3 PO; METO-333 PO; MULT-1061 PO; TICA90TA PO
[2017-02-25] MEDS ORDERED: NS IV 1000 ML 1,000 ML ONE (07:14)
[2017-02-25] MEDS ORDERED: HEParin (CATH LAB) 2,000 ML IV ONE (07:14)
[2017-02-25] MEDS ORDERED: LIDOCAINE 1% INJ 20 ML (XYLOCAINE) VIAL ONE (07:14)
[2017-02-25 07:42] LABS: MEAN PLATELET VOLUME 10.2 FL (7.4-10.4); RED BLOOD COUNT 4.78 10^6/uL (4.35-5.85); RED CELL DISTRIBUTION WIDTH 13.2 % (10.0-14.5); WHITE BLOOD COUNT 6.4 10^3/uL (4.3-11.0)
[2017-02-25 07:43] VITALS: BP 140/117
[2017-02-25] MEDS ORDERED: NS IV 1000 ML 1,000 ML IV SCH ×2 (07:45→08:30)
[2017-02-25 07:53] LABS: INR 1.1 (0.8-1.4); PROTHROMBIN TIME PATIENT 13.5 SEC (12.2-14.7)
[2017-02-25 08:03] LABS: ALANINE AMINOTRANSFERASE 26 U/L (0-55); ALBUMIN 4.4 G/DL (3.2-4.5); ANION GAP 10 MMOL/L (5-14); ASPARTATE AMINO TRANSFERASE 18 U/L (5-34); BILIRUBIN,TOTAL 0.5 MG/DL (0.1-1.0); BLOOD UREA NITROGEN 20 MG/DL (7-18); BUN/CREATININE RATIO 18; CALCIUM 9.5 MG/DL (8.5-10.1); CARBON DIOXIDE 27 MMOL/L (21-32); CHLORIDE 108 MMOL/L (98-107); CREATININE SERUM 1.13 MG/DL (0.60-1.30); GFR ESTIMATED > 60; GLUCOSE 91 MG/DL (70-105); POTASSIUM 3.7 MMOL/L (3.6-5.0); SODIUM 145 MMOL/L (135-145); TOTAL PROTEIN 7.3 G/DL (6.4-8.2)
[2017-02-25] MEDS ORDERED: FISH1CAP15 PO (08:17)
[2017-02-25] MEDS ORDERED: MULT-1029 PO (08:17)
[2017-02-25] MEDS ORDERED: METO-333 PO (08:17)
[2017-02-25] MEDS ORDERED: ISOS30TA3 PO (08:17)
[2017-02-25] MEDS ORDERED: ASPI-983 PO (08:17)
[2017-02-25] MEDS ORDERED: TICA90TA PO (08:17)
[2017-02-25] MEDS ORDERED: ATOR80TA64 PO (08:17)
--- NOTE | 2017-02-25 08:30 | Diagnostic Imaging Report ---
INDICATION: Pre-heart catheter. COMPARISON: 02/12/2017. FINDINGS: Portable chest shows the lungs to be clear. Heart is not enlarged. There is no pulmonary edema. No pneumothorax or pleural effusion. IMPRESSION: Normal portable chest. Dictated by: Dictated on workstation # [id number]
[2017-02-25] MEDS ORDERED: MIDAZOLAM 5 MG/5 ML (VERSED) VIAL ONE (09:42)
--- NOTE | 2017-02-25 10:04 | Cardiac Procedure Note-CS/ASA ---
Pre-Procedure Note Pre-Op Procedure Note H&P Reviewed The H&P was reviewed, patient examined and no changes noted. Date H&P Reviewed: February 25, 2017 Time H&P Reviewed: 10:04 Conscious Sedation Pre-Proced Time Reviewed: 10:04 ASA Class: 3 Airway Mallampati Classification: (port heiden appropriate class) I. II. III, IV Lungs Heart ASA score ASA 1: a normal healthy patient ASA 2: a patient with a mild systemic disease (mid diabetes, controlled hypertension, obesity x ASA 3: a patient with a severe systemic disease that limits activity (angina , COPD, prior Myocardial infarction) ASA 4: a patient with an incapacitating disease that is a constant threat to life (CHF, renal failure) ASA 5: a moribund patient not expected to survive 24 hrs. (ruptured aneurysm) ASA 6: a declared brain patient whose organs are being harvested. For emergent operations, add the letter E after the classification Grade 3 Sedation Plan: Analgesia, Amnesia, Plan communicated to team members, Discussed options with patient/fam, Discussed risks with patient/fam Note The patient is an appropriate candidate to undergo the planned procedure, sedation, and anesthesia. The patient immediately re-assessed prior to indication. ALDO HAMMER MD February 25, 2017 10:04
[2017-02-25] MEDS ORDERED: HEParin 1000 UNIT/ML (10ML VIAL) FOR BOLUS ONE (10:31)
[2017-02-25] MEDS ORDERED: NITROGLYCERIN DRIP 25 MG/D5W 250 ML IV ONE (10:33)
[2017-02-25] MEDS ORDERED: ASPIRIN 325 MG (5 GR) TABLET ONE (10:58)
[2017-02-25 11:00] LABS: BILIRUBIN,URINE NEGATIVE (NEGATIVE); KETONES,URINE NEGATIVE (NEGATIVE); LEUKOCYTE ESTERASE ,URINE NEGATIVE (NEGATIVE); NITRITE,URINE NEGATIVE (NEGATIVE); PH,URINE 6.5 (5-9); PROTEIN,URINE NEGATIVE (NEGATIVE); UROBILINOGEN,URINE NORMAL (NORMAL)
[2017-02-25] MEDS ORDERED: PATIENT MAY USE OWN MEDS, ALL PO SCH (11:00)
[2017-02-25] MEDS: NS IV 1000 ML 1,000 ML IV SCH ×2 (11:15→17:26)
[2017-02-25 11:23] LABS: WBC,URINE RARE /HPF
--- NOTE | 2017-02-25 11:32 | CARDIAC CATHETERIZATION ---
DATE OF SERVICE: 02/25/2017 CARDIAC CATHETERIZATION REFERRING PHYSICIAN: Dr. Alon Lazar BRIEF HISTORY: The patient is a 56-year-old gentleman with a history of coronary artery disease, had a recent stent to the LAD. Patient had a significant lesion in the right coronary artery. Patient was concerned. We were discussing staging it. I saw him in the office and he expressed that he has been extremely anxious, worried about performing any activities. We decided to proceed with coronary angiogram and stenting of the right coronary artery. PROCEDURE NOTE: After explaining the procedure to the patient, all pros and cons were explained, all questions were answered, patient signed a consent, then he was placed in the cardiac catheterization laboratory. Right groin was prepped in a sterile fashion. Local anesthesia applied to the right groin. A 6-Cypriot sheath was placed in the right femoral artery. Erika left catheter was advanced to the left coronary system. Multiple views were obtained. Then, Erika right was advanced to the right coronary system. Angiogram was done. I decided to proceed with percutaneous intervention. I used 5000 units of heparin, then an additional 2000 were give. FR guide was advanced to the right coronary artery with difficulties. BMW wire was advanced. I was unable to advance the wire distally. I used a balloon initially to stabilize the guide, then advance the wire to the distal right coronary artery. Patient had multiple lesions in the right coronary artery. Far distally, he had 70% stenosis. Then, distal portion has 90% stenosis. Proximal to that, there was an area of 60% stenosis. I proceeded with balloon angioplasty using Emerge balloon, 2.5 mm x 20 mm balloon. Then, I deployed a Xience Alpine stent, 2.5 mm x 23 mm stent, under 12 atmospheres up to 2.55 mm with excellent results. TOTAL CONTRAST USED: 108 mL. TOTAL RADIATION: 6918. FINDINGS: ANATOMY: 1. Left main coronary artery is bifurcating to left anterior descending and left circumflex artery with no obstructive disease. 2. Left anterior descending artery has patent stent with mild disease distally. 3. Left circumflex artery is moderate in size with no obstructive disease. 4. Right coronary artery has multiple lesions, 60%, followed by 80%, followed by 70% at the far distal portion that is fairly small. No intervention was done at the far distal portion. Proximal to that, balloon angioplasty, then deployment of a stent using a Xience Alpine 2.5 mm x 23 mm, expanded to 2.55 mm with excellent results. No residual stenosis was noted. CONCLUSION: 1. Patent stent in the LAD. 2. Severe stenosis at the distal right coronary artery with successful stent deployment using 2.5 mm x 23 mm Xience Alpine stent, expanded to 2.55 mm with excellent result. The far distal portion of the right coronary artery has 70% stenosis; that is fairly small artery. DISCUSSION AND RECOMMENDATIONS: I will continue maximizing medical therapy. No further intervention is warranted. Job ID: [id number] DocumentID: [id number] Dictated Date: 02/25/2017 11:02:37 Pathological Technician Date: 02/25/2017 11:31:55 Dictated By: ALDO HAMMER MD
--- NOTE | 2017-02-25 11:35 | DISCHARGE SUMMARY ---
DATE OF SERVICE: 02/25/2017 BRIEF HISTORY: The patient is a 56-year-old gentleman with a history of coronary artery disease, had a recent stent to the LAD. Patient had a significant lesion in the right coronary artery. Patient was concerned. We were discussing staging it. I saw him in the office and he expressed that he has been extremely anxious, worried about performing any activities. We decided to proceed with coronary angiogram and stenting of the right coronary artery. PROCEDURE NOTE: After explaining the procedure to the patient, all pros and cons were explained, all questions were answered, patient signed a consent, then he was placed in the cardiac catheterization laboratory. Right groin was prepped in a sterile fashion. Local anesthesia applied to the right groin. A 6-Khmer sheath was placed in the right femoral artery. Erika left catheter was advanced to the left coronary system. Multiple views were obtained. Then, Erika right was advanced to the right coronary system. Angiogram was done. I decided to proceed with percutaneous intervention. I used 5000 units of heparin, then an additional 2000 were give. FR guide was advanced to the right coronary artery with difficulties. BMW wire was advanced. I was unable to advance the wire distally. I used a balloon initially to stabilize the guide, then advance the wire to the distal right coronary artery. Patient had multiple lesions in the right coronary artery. Far distally, he had 70% stenosis. Then, distal portion has 90% stenosis. Proximal to that, there was an area of 60% stenosis. I proceeded with balloon angioplasty using Emerge balloon, 2.5 mm x 20 mm balloon. Then, I deployed a Xience Alpine stent, 2.5 mm x 23 mm stent, under 12 atmospheres up to 2.55 mm with excellent results. TOTAL CONTRAST USED: 108 mL. TOTAL RADIATION: 6918. FINDINGS: ANATOMY: 1. Left main coronary artery is bifurcating to left anterior descending and left circumflex artery with no obstructive disease. 2. Left anterior descending artery has patent stent with mild disease distally. 3. Left circumflex artery is moderate in size with no obstructive disease. 4. Right coronary artery has multiple lesions, 60%, followed by 80%, followed by 70% at the far distal portion that is fairly small. No intervention was done at the far distal portion. Proximal to that, balloon angioplasty, then deployment of a stent using a Xience Alpine 2.5 mm x 23 mm, expanded to 2.55 mm with excellent results. No residual stenosis was noted. CONCLUSION: 1. Patent stent in the LAD. 2. Severe stenosis at the distal right coronary artery with successful stent deployment using 2.5 mm x 23 mm Xience Alpine stent, expanded to 2.55 mm with excellent result. The far distal portion of the right coronary artery has 70% stenosis; that is fairly small artery. DISCUSSION AND RECOMMENDATIONS: I will continue maximizing medical therapy. No further intervention is warranted. FINAL DIAGNOSES: 1. Coronary artery disease. 2. Hypertension. 3. Hyperlipidemia. Job ID: [id number] DocumentID: [id number] Dictated Date: 02/25/2017 11:02:37 Staff Mechanical Engineer Date: 02/25/2017 11:35:26 Dictated By: ALDO HAMMER MD MTDD
[2017-02-25 20:00] VITALS: BP 134/95
[2017-02-25] MEDS ORDERED: ATORVASTATIN 80 MG (LIPITOR) TABLET PO SCH (21:00)
[2017-02-25] MEDS ORDERED: meTOprolol TARTRATE 25 MG (LOPRESSOR) TABLET PO SCH (21:00)
[2017-02-25] MEDS ORDERED: MULTIVITAMIN PO SCH (21:00)
[2017-02-25] MEDS ORDERED: TICAGRELOR 90 MG TABLET (BRILINTA) PO SCH (21:00)
[2017-02-25] MEDS ORDERED: [UNRECOGNIZED DRUG - OTHER] PO SCH (21:00)
[2017-02-25 23:55] VITALS: BP 127/87
[2017-02-26 04:00] VITALS: BP 125/90
[2017-02-26] MEDS: NS IV 1000 ML 1,000 ML IV SCH (06:45)
--- NOTE | 2017-02-26 07:11 | Cardiology Progress Note ---
Subjective Subjective/Events-last exam patient is laying down in bed, feeling better, groin is healing well, complaining of headache Review of Systems General: No Chills, No Night Sweats, No Fatigue, No Malaise, No Appetite, No Other HEENT: No Head Aches, No Visual Changes, No Eye Pain, No Ear Pain, No Dysphasia , No Sinus Congestion, No Post Nasal Drip, No Sore Throat, No Other Pulmonary: No Dyspnea, No Cough, No Pleuritic Chest Pain, No Other Cardiovascular: No: Chest Pain, Edema, Lt Headedness, Orthopnea, Other, Palpitations, Paroxysmal Noc. Dyspnea Objective-Cardiology Exam Last Set of Vital Signs Vital Signs 02/26/17 04:00 Temp 98.6 Pulse 60 Resp 20 B/P (MAP) 125/90 Pulse Ox 93 O2 Delivery Room Air Capillary Refill : Less Than 3 Seconds I&O Intake and Output 02/26/17 00:00 Intake Total 650 ml Output Total 500 ml Balance 150 ml Intake Oral 650 ml Output Urine Total 500 ml General: Alert, Oriented X3, Cooperative HEENT: Atraumatic, PERRLA Neck: Supple, No JVD, No Thyromegaly Lungs: Clear to Auscultation, Normal Air Movement Heart: Regular Rate, Normal S1, Normal S2, No Murmurs Abdomen: Normal Bowel Sounds, Soft, No Tenderness, No Hepatosplenomegaly, No Masses Extremities: No Clubbing, No Cyanosis, No Edema, Normal Pulses, No Tenderness/ Swelling Skin: No Rashes, No Breakdown, No Significant Lesion Neuro: Normal Gait, Normal Speech, Strength at 5/5 X4 Ext, Normal Tone, Sensation Intact Psych/Mental Status: Mental Status NL, Mood NL Results Lab Laboratory Tests 02/25/17 07:35 A/P-Cardiology Admission Diagnosis coronary artery disease Hypertension Hyperlipidemia Assessment/Plan coronary artery disease status post stent to the right coronary artery Hypertension, controlled continue on current medication Hyperlipidemia continue current medication Patient is having headache I will given Tylenol Groin is healing well, planning for discharge home ALDO HAMMER MD February 26, 2017 07:10
--- NOTE | 2017-02-26 07:13 | Discharge Inst-Post CATH ---
Discharge Inst-CATH Post Cardiac Cath D/C Inst Follow Up/Plan Appointment with Dr. Simpson's office in 2-4 weeks CARDIAC CATH DISCHARGE INSTRUCTIONS *Hold Metformin for 48 hours post heart cath. ACTIVITY * Go Home directly and rest. * Limit activity of the leg (or wrist if it was used) for 7 days including aerobics, swimming, jogging, bicycling, etc. * Restrict stair-climbing for 7 days if possible, if not, climb up with your non -cath leg, then bring together on the same step. * Avoid lifting, pushing, pulling or excessive movement of the affected extremity for 7 days. * Customary sexual activity may be resumed after 2 days-use caution not to use a position that strains or causes pain to the affected extremity. * No driving for 24 hours. * NO SMOKING. * Avoid straining for bowel movements for 7 days. * Gentle walking on level ground is allowed. * Returning to work will depend on the type of procedure and the results. Your doctor will discuss this with you. CALL YOUR DOCTOR FOR ANY OF THE FOLLOWING: *If bleeding from the puncture site occurs- Apply gentle pressure to site with clean cloth and call your doctor or EMS. * If a knot or lump forms under the skin, increases in size, or causes pain. * If bruising appears to be worsening or moving further down your leg instead of disappearing. * Temperature above 101 F. CARE OF YOUR GROIN INCISION; * Bruising or purple discoloration of the skin near the puncture site is common. * You may shower only, no bathtub bathing for 5 days. Be careful to avoid slipping as your leg may feel stiff. * If a closure device was used on your femoral artery, please see the attached guide regarding care of the device and your leg. * REMOVE the dressing from your groin the next day after your procedure in the shower. CARE OF YOUR WRIST INCISION; * Bruising or purple discoloration of the skin near the puncture site is common. * You may shower. * DO NOT submerge wrist. * Remove dressing in 24 hours. ALDO SIMPSON MD February 26, 2017 07:12
[2017-02-26] MEDS ORDERED: ACETAMINOPHEN 500 MG TAB (TYLENOL) PO NR (07:15)
[2017-02-26 08:20] VITALS: BP 128/88
[2017-02-26] MEDS ORDERED: ASPIRIN E.C. 81 MG (ECOTRIN) TAB PO SCH (09:00)
[2017-02-26] MEDS ORDERED: FISH OIL 1200 MG PO SCH (09:00)
[2017-02-26] MEDS ORDERED: ISOSORBIDE MONONITRATE 30 MG (IMDUR) TAB PO SCH (09:00)
== END 2017-02-26 08:25 ==
LOC: CATH 07:07 → ICU 11:15 → CATH 02-26 08:25
PROVIDERS: ATTEND Internal Medicine Cardiovascular Disease
DX: I25.10 Atherosclerotic heart disease of native coronary artery without angina pectoris (principal); Z95.5 Presence of coronary angioplasty implant and graft; I10 Essential (primary) hypertension; E78.5 Hyperlipidemia, unspecified; Z79.899 Other long term (current) drug therapy; Z82.49 Family history of ischemic heart disease and other diseases of the circulatory system
CPT/HCPCS: 36415; 71010; 80053; 81000; 85027; 85347; 85610; 85730; 87081; 93005

== ENCOUNTER → 2021-02-12 | Outpatient (CLI) | payer BC ==
[~2021-02-12] MED LIST changes: +ASPI-1238 PO; -ASPI-983 PO; +ATOR80TA64 PO; -ISOS30TA3 PO; +ISOS30TA82 PO; +MULT-1029 PO
== END ==
LOC: CARD 11:30
PROVIDERS: ATTEND Physician Assistant
DX: I25.10 Atherosclerotic heart disease of native coronary artery without angina pectoris (principal); I10 Essential (primary) hypertension
CPT/HCPCS: 93306

== ENCOUNTER → 2021-04-01 | Outpatient (CLI) | payer BC ==
[~2021-04-01] VITALS: Ht 172 cm; Wt 87.0 kg
[~2021-04-01] MED LIST changes: +CATHETER FLUSH 10 ML SYR IV PRN
[2021-04-01 09:09] VITALS: BP 118/69
--- NOTE | 2021-04-01 15:56 | STRESS TEST ---
DATE OF SERVICE: 04/01/2021 RESTING AND POST EXERCISE TECHNETIUM-99M TETROFOSMIN SPECT CT IMAGING ORDERING PHYSICIAN: YAMILA Shelton PRIMARY PHYSICIAN: Dr. Cummins. OTHER PHYSICIAN: Dr. Simpson. CLINICAL DIAGNOSES: Coronary artery disease. Baseline images were carried out after injection of 11 mCi of technetium-99m Tetrofosmin. Subsequently, the site was carried out on a treadmill. After the patient had attained target heart rate, 32 mCi of technetium-99m Tetrofosmin were injected and the exercise was continued for another minute. The electrocardiogram did not exhibit significant ST segment change. The patient did not report symptoms. The patient attained 92% of maximum predicted heart rate and exercised for 9 minutes and 30 seconds in the Rod protocol. He attained 11.1 METS of workload. Review of images at rest and following stress indicates a transient, basal inferior perfusion defect. Gated images show normal global left ventricular systolic function with normal regional wall motion. Left ventricular ejection fraction is calculated to be 62%. Left ventricular end diastolic volume is 80 mL. TID is absent (0.9). CONCLUSIONS: 1. This study is indicative of mild to moderate amount of basal inferior ischemia. 2. Normal regional wall motion. 3. Normal global left ventricular systolic function with a calculated ejection fraction of 62%. Job ID: [id number] DocumentID: [id number] Dictated Date: 04/01/2021 12:33:25 Experimental Machining Lab Manager Date: 04/01/2021 15:55:41 Dictated By: SHANNON CUNNINGHAM MD, MA, FACP, FACC,
== END ==
LOC: CARD 06:50
PROVIDERS: ATTEND Physician Assistant
DX: I25.10 Atherosclerotic heart disease of native coronary artery without angina pectoris (principal); I10 Essential (primary) hypertension
CPT/HCPCS: 78452; 93017; A9502

== ENCOUNTER 2022-06-05 21:05 | Observation (INO) | payer BC, OTHER ==
[~2022-06-05] VITALS: Ht 172.7 cm; Wt 91.3 kg
[~2022-06-05 21:05] MED LIST changes: -CATHETER FLUSH 10 ML SYR IV PRN
[2022-06-05] MEDS ORDERED: LORATADINE (CLARITIN) 10 MG TAB PO ONE (21:45)
[2022-06-05] MEDS ORDERED: DOXYCYCLINE INJECTION 100 MG in NS (IVPB) 100 ML IV ONE (21:45)
[2022-06-05] MEDS ORDERED: NS IV 1000 ML 1,000 ML IV SCH (21:45)
[2022-06-05] MEDS ORDERED: ACETAMINOPHEN 500 MG TAB (TYLENOL) PO ONE (21:45)
[2022-06-05 21:50] LABS: BASOPHILS % (AUTO) 0 % (0-10); EOSINOPHILS # (AUTO) 0.2 10^3/uL (0.0-0.3); EOSINOPHILS % (AUTO) 3 % (0-10); HEMATOCRIT 43 % (40-54); HEMOGLOBIN 14.5 g/dL (13.3-17.7); LYMPHOCYTES # (AUTO) 0.8 10^3/uL (1.0-4.0); LYMPHOCYTES % (AUTO) 10 % (12-44); MEAN CORPUSCULAR HEMOGLOBIN 30 pg (25-34); MEAN CORPUSCULAR HGB CONC 34 g/dL (32-36); MEAN CORPUSCULAR VOLUME 88 fL (80-99); MEAN PLATELET VOLUME 10.3 fL (9.0-12.2); MONOCYTES # (AUTO) 0.5 10^3/uL (0.0-1.0); MONOCYTES % (AUTO) 7 % (0-12); NEUTROPHILS % (AUTO) 79 % (42-75); PLATELET COUNT 212 10^3/uL (130-400); WHITE BLOOD COUNT 7.6 10^3/uL (4.3-11.0)
--- NOTE | 2022-06-05 21:50 | ED Integumentary General ---
General Chief Complaint: General Problems/Pain Stated Complaint: FASH/FEVER/JOINT PAIN/FATIGUE Nursing Triage Note: PATIENT REPORTS A RASH STARTED YESTERDAY, WORSENED TODAY WITH FEVER, JOINT PAIN. PATIENT STATES HAS TAKEN TWO BENADRYL TWICE TODAY. WAS POSITIVE WITH COVID LAST WEEK, PATIENT HAS HAD TWO NEGATIVE COVID TEST. PATIENT STATES HIS FEVER TODAY WAS 102 Source: patient Exam Limitations: no limitations History of Present Illness Date Seen by Provider: Jun 05, 2022 Time Seen by Provider: 21:28 Initial Comments Patient to the ER by private conveyance with chief complaint that for 1 day now he is experiencing fevers, T-max of 100.8, body aches in his ankles wrists shoulders, knees, hips, and a flat red itchy rash all over his body sparing his soles and mouth. No pustules, bullae or drainage. No dysuria. 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 His also had COVID about 1 to 2 weeks prior to this. She is over her symptoms. He did not get COVID at that time. He is not having runny nose cough sore throat, nausea, diarrhea or constipation. No chest or abdominal pain. Allergies and Home Medications Allergies Coded Allergies: No Known Drug Allergies (Unverified , 02/12/17) Patient Home Medication List Home Medication List Reviewed: Yes Aspirin (Aspirin EC) 81 Mg Tablet.dr, 81 MG PO DAILY, (Reported) Entered as Reported by: KRYSTAL KANG on 02/25/17816 Atorvastatin Calcium (Lipitor) 80 Mg Tablet, 80 MG PO HS, (Reported) Entered as Reported by: KRYSTAL KANG on 02/25/17816 Fish Oil/Dha/Epa (Fish Oil 1,200 mg Fish Oil) 1 Each Capsule, 1,200 MG PO DAILY, (Reported) Entered as Reported by: KRYSTAL KANG on 02/25/17816 Isosorbide Mononitrate (Isosorbide Mononitrate ER) 30 Mg Tab.er.24h, 30 MG PO DAILY, (Reported) Entered as Reported by: KRYSTAL KANG on 02/25/17816 Metoprolol Tartrate (Metoprolol Tartrate) 25 Mg Tablet, 12.5 MG PO BID, (Reported) Entered as Reported by: KRYSTAL KANG on 02/25/17816 Multivit-Min/FA/Lycopene/Lut (Centrum Silver Tablet) 1 Each Tablet, 1 TAB PO HS, (Reported) Entered as Reported by: KRYSTAL KANG on 02/25/17816 Ticagrelor (Brilinta) 90 Mg Tablet, 90 MG PO BID, (Reported) Entered as Reported by: KRYSTAL KANG on 02/25/17816 Review of Systems Review of Systems Constitutional: No chills, No diaphoresis EENTM: No ear discharge, No ear pain Respiratory: No cough, No phlegm, No short of breath Cardiovascular: No chest pain, No edema Gastrointestinal: No abdominal pain, No constipation, No diarrhea, No nausea Genitourinary: No discharge, No dysuria Musculoskeletal: No back pain, No joint pain All Other Systems Reviewed Negative Unless Noted: Yes Past Xfvymsb-Rmqyni-Bipavb Hx Patient Social History Tobacco Use?: No Use of E-Cig and/or Vaping dev: No Substance use?: No Alcohol Use?: Yes Pt feels they are or have been: No Immunizations Up To Date Influenza Vaccine Up-to-Date: No; Not Current First/Initial COVID19 Vaccinat: YES Second COVID19 Vaccination Kermit: YES Seasonal Allergies Seasonal Allergies: Yes Past Medical History Surgeries: Yes (X4 BACK) Appendectomy Respiratory: No Cardiac: Yes Hypertension Neurological: No Genitourinary: No Gastrointestinal: No Musculoskeletal: Yes Back Injury, Chronic Back Pain Endocrine: No HEENT: No Cancer: No Psychosocial: No Integumentary: No Blood Disorders: No Adverse Reaction/Blood Tranf: No Family Medical History No Pertinent Family Hx Physical Exam Vital Signs Vital Signs - First Documented 06/05/22 21:24 Temp 37.5 Pulse 114 Resp 18 B/P (MAP) 127/91 (103) Pulse Ox 98 O2 Delivery Room Air Capillary Refill : Less Than 3 Seconds General Appearance: WD/WN, no apparent distress HEENT: PERRL/EOMI, normal ENT inspection, pharynx normal Neck: full range of motion, supple, normal inspection Cardiovascular: normal peripheral pulses, regular rate, rhythm Respiratory: lungs clear, normal breath sounds, no respiratory distress, no accessory muscle use Gastrointestinal: normal bowel sounds, non tender, soft Extremities: normal range of motion, non-tender Neurologic/Psychiatric: alert, normal mood/affect Skin: other (Covered in a faint erythematous blanchable macular patch/rash with confluence is over the trunk upper and lower extremities. There is a 8 cm round rash with a central clearing over the left lateral back.) Progress/Results/Core Measures Results/Orders Lab Results Laboratory Tests Test 06/05/22 21:13 06/05/22 21:19 06/05/22 21:50 06/05/22 22:30 Range/Units Influenza Type A (RT-PCR) Not Detected Not Detecte Influenza Type B (RT-PCR) Not Detected Not Detecte SARS-CoV-2 RNA (RT-PCR) Not Detected Not Detecte White Blood Count 7.6 4.3-11.0 10^3/uL Red Blood Count 4.89 4.30-5.52 10^6/uL Hemoglobin 14.5 13.3-17.7 g/dL Hematocrit 43 40-54 % Mean Corpuscular Volume 88 80-99 fL Mean Corpuscular Hemoglobin 30 25-34 pg Mean Corpuscular Hemoglobin Concent 34 32-36 g/dL Red Cell Distribution Width 12.7 10.0-14.5 % Platelet Count 212 130-400 10^3/uL Mean Platelet Volume 10.3 9.0-12.2 fL Immature Granulocyte % (Auto) 0 % Neutrophils (%) (Auto) 79 H 42-75 % Lymphocytes (%) (Auto) 10 L 12-44 % Monocytes (%) (Auto) 7 0-12 % Eosinophils (%) (Auto) 3 0-10 % Basophils (%) (Auto) 0 0-10 % Neutrophils # (Auto) 6.0 1.8-7.8 10^3/uL Lymphocytes # (Auto) 0.8 L 1.0-4.0 10^3/uL Monocytes # (Auto) 0.5 0.0-1.0 10^3/uL Eosinophils # (Auto) 0.2 0.0-0.3 10^3/uL Basophils # (Auto) 0.0 0.0-0.1 10^3/uL Immature Granulocyte # (Auto) 0.0 0.0-0.1 10^3/uL Prothrombin Time 14.2 12.2-14.7 SEC INR Comment 1.1 0.8-1.4 Activated Partial Thromboplast Time 36 H 24-35 SEC Sodium Level 138 135-145 MMOL/L Potassium Level 3.9 3.6-5.0 MMOL/L Chloride Level 103 98-107 MMOL/L Carbon Dioxide Level 26 21-32 MMOL/L Anion Gap 9 5-14 MMOL/L Blood Urea Nitrogen 20 H 7-18 MG/DL Creatinine 1.43 H 0.60-1.30 MG/DL Estimat Glomerular Filtration Rate 55 BUN/Creatinine Ratio 14 Glucose Level 123 H 70-105 MG/DL Calcium Level 9.7 8.5-10.1 MG/DL Corrected Calcium 9.5 8.5-10.1 MG/DL Total Bilirubin 0.7 0.1-1.0 MG/DL Aspartate Amino Transf (AST/SGOT) 22 5-34 U/L Alanine Aminotransferase (ALT/SGPT) 31 0-55 U/L Alkaline Phosphatase 59 40-136 U/L C-Reactive Protein High Sensitivity 3.09 H 0.00-0.50 MG/DL Total Protein 7.7 6.4-8.2 GM/DL Albumin 4.3 3.2-4.5 GM/DL Procalcitonin 0.08 <0.10 NG/ML Lactic Acid Level 1.16 0.50-2.00 MMOL/L Urine Color YELLOW Urine Clarity CLEAR Urine pH 6.5 5-9 Urine Specific [place] 1.015 L 1.016-1.022 Urine Protein NEGATIVE NEGATIVE Urine Glucose (UA) NEGATIVE NEGATIVE Urine Ketones NEGATIVE NEGATIVE Urine Nitrite NEGATIVE NEGATIVE Urine Bilirubin NEGATIVE NEGATIVE Urine Urobilinogen 0.2 < = 1.0 MG/DL Urine Leukocyte Esterase NEGATIVE NEGATIVE Urine RBC (Auto) NEGATIVE NEGATIVE Urine RBC NONE /HPF Urine WBC NONE /HPF Urine Crystals NONE /LPF Urine Bacteria NEGATIVE /HPF Urine Casts NONE /LPF Urine Mucus NEGATIVE /LPF Urine Culture Indicated NO My Orders Orders - MARVA HAMMONDS 19 Inhouse Test (06/05/22 21:38) Cbc With Automated Diff (06/05/22 21:38) Comprehensive Metabolic Panel (06/05/22 21:38) Blood Culture (06/05/22 21:38) Sputum Culture (06/05/22 21:38) Urinalysis (06/05/22 21:38) Urine Culture (06/05/22 21:38) Protime With Inr (06/05/22 21:38) Partial Thromboplastin Time (06/05/22 21:38) Chest 1 View, Ap/Pa Only (06/05/22 21:38) Ed Iv/Invasive Line Start (06/05/22 21:38) Ed Iv/Invasive Line Start (06/05/22 21:38) Vital Signs Adult Sepsis Patie Q15M (06/05/22 21:38) O2 (06/05/22 21:38) Remove Rings In Anticipation O (06/05/22 21:38) Lactic Acid Analyzer (06/05/22 21:38) Influenza A And B By Pcr (06/05/22 21:38) Ns Iv 1000 Ml (Sodium Chloride 0.9%) (06/05/22 21:45) Doxycycline Injection (Vibramycin Inject (06/05/22 21:45) Acetaminophen Tablet (Tylenol Tablet) (06/05/22 21:45) Loratadine Tablet (Claritin Tablet) (06/05/22 21:45) Hs C Reactive Protein (06/05/22 21:41) Procalcitonin (Pct) (06/05/22 21:41) Tick Panel With Lyme Eia (06/05/22 21:52) Ed Iv/Invasive Line Start (06/05/22 22:16) Lactated Ringers (Lr 1000 Ml Iv Solution (06/05/22 22:30) Medications Given in ED Current Medications Medications Dose Ordered Sig/Dominga Route Start Time Stop Time Status Last Admin Dose Admin Acetaminophen 1,000 mg ONCE ONCE PO 06/05/22 21:45 06/05/22 21:46 DC 06/05/22 21:56 1,000 MG Doxycycline Hyclate 100 mg/ Sodium Chloride 100 ml @ 100 mls/hr ONCE ONCE IV 06/05/22 21:45 06/05/22 22:44 DC 06/05/22 21:54 100 MLS/HR Lactated Ringer's 1,000 ml @ 0 mls/hr Q0M ONCE IV 06/05/22 22:30 06/05/22 22:31 DC 06/05/22 23:01 0 MLS/HR Loratadine 10 mg ONCE ONCE PO 06/05/22 21:45 06/05/22 21:46 DC 06/05/22 21:56 10 MG Vital Signs/I&O 06/05/22 06/05/22 21:24 21:56 Temp 37.5 37.6 Pulse 114 Resp 18 B/P (MAP) 127/91 (103) Pulse Ox 98 O2 Delivery Room Air Blood Pressure Mean: 103 Progress Progress Note #1: Time: 21:50 Progress Note There is a questionable targetoid lesion over his left back he has a history of being bitten by ticks as well as exposure to COVID so were going to cover him with doxycycline, initiate a septic work-up. Will also test him for COVID since his had COVID recently and start with that attenuated dose of IV fluids of 1 L. This would be 10 mL/kg. We know with viral infection such as COVID-19 excessive doses of fluids or not indicated and not helpful. Will reassess. His heart rate is already down to the mid to low 90s by the time of the end of our e xamination. Progress Note #2: Time: 22:15 Progress Note Labs are okay, no leukocytosis or significant elevation of the CRP. Creatinine is elevated so we will go ahead and let him have 2 L of fluid. No evidence of pulmonary edema on chest x-ray after most of his first liter is given. No increasing shortness of breath, crackles or decreased oxygen saturations to indicate he might be going into pulmonary edema. COVID-19 was negative. We did offer him an opportunity to stay in the hospital. He is deliberating with his whether he wants to do that. We will make sure he at least gets 2 L of fluid for his dehydration noted on labs. Diagnostic Imaging Diagonstic Imaging: Xray Plain Films/CT/US/NM/MRI: chest Comments No acute cardiopulmonary process on 1 view chest x-ray. Compared to 2017 the mediastinum does appear a little more prominent. No infiltrates or fractures, free air under the diaphragm or other adventitious findings. [facility] [place], [place] NAME: [facility] REC#: [id number] PT STATUS: REG ER : 1960 PHYSICIAN: MARVA HAMMONDS MD ADMIT DATE: 06/05/22/ER Signed Date of Exam:06/05/22 CHEST 1 VIEW, AP/PA ONLY INDICATION: Sepsis. EXAMINATION: AP view of the chest was obtained. COMPARISON: Study of 02/25/2017. FINDINGS: Heart size and pulmonary vascularity are within normal limits, and the lungs are clear, bilaterally. IMPRESSION: Unremarkable chest. Dictated by: Dictated on workstation # [id number] Dict: 06/05/225 Trans: 06/05/222319 PJE [id number] Interpreted by: ELENA ERVIN MD Electronically signed by: ELENA ERVIN MD 06/05/222319 Reviewed: Reviewed by Me Departure Communication (Admissions) Time/Spoke to Admitting Phy: 23:45 Discussed the case with Dr. Colin and she agrees to admit the patient with a septic work-up and antibiotics. Impression Primary Impression: Tick fever Additional Impressions: Sepsis Qualified Codes: A41.9 - Sepsis, unspecified organism JOSELUIS (acute kidney injury) Disposition: ADMITTED INPATIENT Condition: Stable Admissions Decision to Admit Reason: Admit from ER (General) Decision to Admit/Date: Jun 05, 2022 Time/Decision to Admit Time: 23:45 Departure-Patient Inst. Referrals: GABRIEL NORTH MD (PCP/Family) Primary Care Physician Focused Exam Sepsis Stage: Sepsis Possible Source: Other (tick) Lactate Level 06/05/22 21:50: Lactic Acid Level 1.16 Time of Focused Exam: 23:48 Respiratory: Lungs Clear, Normal Breath Sounds, No Accessory Muscle Use, No Respiratory Distress Cardiovascular: Regular Rate, Rhythm, No Edema, Normal Peripheral Pulses Capillary Refill: Less Than 3 Seconds Peripheral Pulses: 2+ Radial Pulses (R), 2+ Radial Pulses (L) Skin: warm/dry, rash Lactic Acid Level Laboratory Tests Test 06/05/22 21:50 Lactic Acid Level 1.16 MMOL/L (0.50-2.00) Within 3hrs of presentation: Admin fluids, Admin ABX, Blood cultures prior to ABX's, Focus exam, Lactate level MARVA HAMMONDS Jun 05, 2022 21:50
[2022-06-05 21:56] LABS: ALBUMIN 4.3 GM/DL (3.2-4.5); INR 1.1 (0.8-1.4); POTASSIUM 3.9 MMOL/L (3.6-5.0); PROTHROMBIN TIME PATIENT 14.2 SEC (12.2-14.7)
[2022-06-05 21:57] LABS: CALCIUM 9.7 MG/DL (8.5-10.1)
[2022-06-05 21:59] LABS: TOTAL PROTEIN 7.7 GM/DL (6.4-8.2)
[2022-06-05 22:00] LABS: BILIRUBIN,TOTAL 0.7 MG/DL (0.1-1.0)
[2022-06-05 22:02] LABS: CREATININE SERUM 1.43 MG/DL (0.60-1.30)
[2022-06-05] MEDS ORDERED: LACTATED RINGERS 1,000 ML IV ONE (22:30)
--- NOTE | 2022-06-05 22:48 | Diagnostic Imaging Report ---
INDICATION: Sepsis. EXAMINATION: AP view of the chest was obtained. COMPARISON: Study of 02/25/2017. FINDINGS: Heart size and pulmonary vascularity are within normal limits, and the lungs are clear, bilaterally. IMPRESSION: Unremarkable chest. Dictated by: Dictated on workstation # [id number]
[2022-06-05 23:06] LABS: BILIRUBIN,URINE NEGATIVE (NEGATIVE); CLARITY,URINE CLEAR; COLOR,URINE YELLOW; GLUCOSE, URINE (UA) NEGATIVE (NEGATIVE); KETONES,URINE NEGATIVE (NEGATIVE); LEUKOCYTE ESTERASE ,URINE NEGATIVE (NEGATIVE); NITRITE,URINE NEGATIVE (NEGATIVE); PH,URINE 6.5 (5-9); PROTEIN,URINE NEGATIVE (NEGATIVE)
[2022-06-05 23:20] LABS: BACTERIA,URINE NEGATIVE /HPF
[2022-06-06] MEDS ORDERED: LACTATED RINGERS 1,000 ML IV ONE (01:30)
[2022-06-06] MEDS: LACTATED RINGERS 1,000 ML IV SCH ×2 (02:00→08:41)
[2022-06-06] MEDS ORDERED: ONDANSETRON 4 MG/2 ML (SDV) Z0FRAN IV PRN (03:30)
[2022-06-06] MEDS ORDERED: ACETAMINOPHEN 500 MG TAB (TYLENOL) PO PRN (03:30)
[2022-06-06] MEDS ORDERED: IBUPROFEN 800 MG (MOTRIN) TAB PO PRN (03:30)
[2022-06-06 04:22] VITALS: BP 123/71
[2022-06-06 06:04] LABS: BASOPHILS % (AUTO) 0 % (0-10); EOSINOPHILS # (AUTO) 0.2 10^3/uL (0.0-0.3); EOSINOPHILS % (AUTO) 3 % (0-10); HEMATOCRIT 37 % (40-54); HEMOGLOBIN 12.3 g/dL (13.3-17.7); LYMPHOCYTES # (AUTO) 1.2 10^3/uL (1.0-4.0); LYMPHOCYTES % (AUTO) 19 % (12-44); MEAN CORPUSCULAR HEMOGLOBIN 30 pg (25-34); MEAN CORPUSCULAR HGB CONC 34 g/dL (32-36); MEAN CORPUSCULAR VOLUME 88 fL (80-99); MEAN PLATELET VOLUME 10.7 fL (9.0-12.2); MONOCYTES # (AUTO) 0.5 10^3/uL (0.0-1.0); MONOCYTES % (AUTO) 8 % (0-12); NEUTROPHILS # (AUTO) 4.2 10^3/uL (1.8-7.8); NEUTROPHILS % (AUTO) 69 % (42-75); PLATELET COUNT 172 10^3/uL (130-400); WHITE BLOOD COUNT 6.1 10^3/uL (4.3-11.0)
[2022-06-06 06:19] LABS: POTASSIUM 3.9 MMOL/L (3.6-5.0)
[2022-06-06 06:20] LABS: CALCIUM 8.7 MG/DL (8.5-10.1)
[2022-06-06 06:25] LABS: CREATININE SERUM 1.05 MG/DL (0.60-1.30)
[2022-06-06 07:45] VITALS: BP 119/81
[2022-06-06] MEDS ORDERED: ASPIRIN 81 MG CHEW (CHILDREN'S ASA) PO SCH (09:00)
[2022-06-06] MEDS ORDERED: DOXYCYCLINE INJECTION 100 MG in NS (IVPB) 100 ML IV SCH (09:00)
[2022-06-06] MEDS ORDERED: LACT1CAP84 PO (09:19)
[2022-06-06] MEDS ORDERED: DOXY100T2 PO (09:19)
--- NOTE | 2022-06-06 09:22 | Discharge Inst-Simple/Standard ---
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 Medication List: Active Scripts Active Ultimate Probiotic-10 25 Billn (Lactobac 41/B.bifid,Lactis/Fos) 111 Mg (25 Billion Cell)-5 Mg Capsule 1 Each PO TID Doxycycline Hyclate 100 Mg Tablet 100 Mg PO BID Reported Fish Oil 1,200 mg Fish Oil (Fish Oil/Dha/Epa) 1 Each Capsule 1,200 Mg PO DAILY Centrum Silver Tablet (Multivit-Min/FA/Lycopene/Lut) 1 Each Tablet 1 Tab PO HS Lipitor (Atorvastatin Calcium) 80 Mg Tablet 80 Mg PO HS Brilinta (Ticagrelor) 90 Mg Tablet 90 Mg PO BID Metoprolol Tartrate 25 Mg Tablet 12.5 Mg PO BID TAKES 1/2 (25MG) TABLET Isosorbide Mononitrate ER (Isosorbide Mononitrate) 30 Mg Tab.er.24h 30 Mg PO DAILY Aspirin EC (Aspirin) 81 Mg Tablet.dr 81 Mg PO DAILY Lab results: Laboratory Tests Test 06/05/22 21:13 06/05/22 21:19 06/05/22 21:50 06/05/22 22:30 Range/Units Influenza Type A (RT-PCR) Not Detected Not Detecte Influenza Type B (RT-PCR) Not Detected Not Detecte SARS-CoV-2 RNA (RT-PCR) Not Detected Not Detecte White Blood Count 7.6 4.3-11.0 10^3/uL Red Blood Count 4.89 4.30-5.52 10^6/uL Hemoglobin 14.5 13.3-17.7 g/dL Hematocrit 43 40-54 % Mean Corpuscular Volume 88 80-99 fL Mean Corpuscular Hemoglobin 30 25-34 pg Mean Corpuscular Hemoglobin Concent 34 32-36 g/dL Red Cell Distribution Width 12.7 10.0-14.5 % Platelet Count 212 130-400 10^3/uL Mean Platelet Volume 10.3 9.0-12.2 fL Immature Granulocyte % (Auto) 0 % Neutrophils (%) (Auto) 79 H 42-75 % Lymphocytes (%) (Auto) 10 L 12-44 % Monocytes (%) (Auto) 7 0-12 % Eosinophils (%) (Auto) 3 0-10 % Basophils (%) (Auto) 0 0-10 % Neutrophils # (Auto) 6.0 1.8-7.8 10^3/uL Lymphocytes # (Auto) 0.8 L 1.0-4.0 10^3/uL Monocytes # (Auto) 0.5 0.0-1.0 10^3/uL Eosinophils # (Auto) 0.2 0.0-0.3 10^3/uL Basophils # (Auto) 0.0 0.0-0.1 10^3/uL Immature Granulocyte # (Auto) 0.0 0.0-0.1 10^3/uL Prothrombin Time 14.2 12.2-14.7 SEC INR Comment 1.1 0.8-1.4 Activated Partial Thromboplast Time 36 H 24-35 SEC Sodium Level 138 135-145 MMOL/L Potassium Level 3.9 3.6-5.0 MMOL/L Chloride Level 103 98-107 MMOL/L Carbon Dioxide Level 26 21-32 MMOL/L Anion Gap 9 5-14 MMOL/L Blood Urea Nitrogen 20 H 7-18 MG/DL Creatinine 1.43 H 0.60-1.30 MG/DL Estimat Glomerular Filtration Rate 55 BUN/Creatinine Ratio 14 Glucose Level 123 H 70-105 MG/DL Calcium Level 9.7 8.5-10.1 MG/DL Corrected Calcium 9.5 8.5-10.1 MG/DL Total Bilirubin 0.7 0.1-1.0 MG/DL Aspartate Amino Transf (AST/SGOT) 22 5-34 U/L Alanine Aminotransferase (ALT/SGPT) 31 0-55 U/L Alkaline Phosphatase 59 40-136 U/L C-Reactive Protein High Sensitivity 3.09 H 0.00-0.50 MG/DL Total Protein 7.7 6.4-8.2 GM/DL Albumin 4.3 3.2-4.5 GM/DL Procalcitonin 0.08 <0.10 NG/ML Lactic Acid Level 1.16 0.50-2.00 MMOL/L Urine Color YELLOW Urine Clarity CLEAR Urine pH 6.5 5-9 Urine Specific [place] 1.015 L 1.016-1.022 Urine Protein NEGATIVE NEGATIVE Urine Glucose (UA) NEGATIVE NEGATIVE Urine Ketones NEGATIVE NEGATIVE Urine Nitrite NEGATIVE NEGATIVE Urine Bilirubin NEGATIVE NEGATIVE Urine Urobilinogen 0.2 < = 1.0 MG/DL Urine Leukocyte Esterase NEGATIVE NEGATIVE Urine RBC (Auto) NEGATIVE NEGATIVE Urine RBC NONE /HPF Urine WBC NONE /HPF Urine Crystals NONE /LPF Urine Bacteria NEGATIVE /HPF Urine Casts NONE /LPF Urine Mucus NEGATIVE /LPF Urine Culture Indicated NO Test 06/06/22 05:27 Range/Units White Blood Count 6.1 4.3-11.0 10^3/uL Red Blood Count 4.17 L 4.30-5.52 10^6/uL Hemoglobin 12.3 L 13.3-17.7 g/dL Hematocrit 37 L 40-54 % Mean Corpuscular Volume 88 80-99 fL Mean Corpuscular Hemoglobin 30 25-34 pg Mean Corpuscular Hemoglobin Concent 34 32-36 g/dL Red Cell Distribution Width 12.9 10.0-14.5 % Platelet Count 172 130-400 10^3/uL Mean Platelet Volume 10.7 9.0-12.2 fL Immature Granulocyte % (Auto) 0 % Neutrophils (%) (Auto) 69 42-75 % Lymphocytes (%) (Auto) 19 12-44 % Monocytes (%) (Auto) 8 0-12 % Eosinophils (%) (Auto) 3 0-10 % Basophils (%) (Auto) 0 0-10 % Neutrophils # (Auto) 4.2 1.8-7.8 10^3/uL Lymphocytes # (Auto) 1.2 1.0-4.0 10^3/uL Monocytes # (Auto) 0.5 0.0-1.0 10^3/uL Eosinophils # (Auto) 0.2 0.0-0.3 10^3/uL Basophils # (Auto) 0.0 0.0-0.1 10^3/uL Immature Granulocyte # (Auto) 0.0 0.0-0.1 10^3/uL Sodium Level 141 135-145 MMOL/L Potassium Level 3.9 3.6-5.0 MMOL/L Chloride Level 110 H 98-107 MMOL/L Carbon Dioxide Level 21 21-32 MMOL/L Anion Gap 10 5-14 MMOL/L Blood Urea Nitrogen 16 7-18 MG/DL Creatinine 1.05 0.60-1.30 MG/DL Estimat Glomerular Filtration Rate 80 BUN/Creatinine Ratio 15 Glucose Level 93 70-105 MG/DL Calcium Level 8.7 8.5-10.1 MG/DL My orders: Orders - JANINE DECKER MD Admission Order(Inpt,Obs,Sdc) (06/06/22 00:40) Code/Resuscitation (06/06/22 01:04) Ambulate ,,20 (06/06/22 01:04) Sequential Compression Device ONCE (06/06/22 01:04) Initiate Admission Nursing Pro .admission (06/06/22 01:04) Isolation Central Supply Req (06/06/22 01:04) General/Regular (06/06/22 Breakfast) Activity (06/06/22 01:04) Cbc With Automated Diff (06/06/22 05:00) Basic Metabolic Panel (06/06/22 05:00) Add [facility] Sepsis Care Plan .admit (06/06/22 01:04) Lactated Ringers (Lr 1000 Ml Iv Solution (06/06/22 01:30) Lactated Ringers (Lr 1000 Ml Iv Solution (06/06/22 03:15) Ondansetron Injection (Zofran Injectio (06/06/22 03:30) Acetaminophen Tablet (Tylenol Tablet) (06/06/22 03:30) Ibuprofen Tablet (Motrin Tablet) (06/06/22 03:30) Aspirin Chewable Tablet (Baby Aspirin Ch (06/06/22 09:00) Doxycycline Injection (Vibramycin Inject (06/06/22 09:00) Attending Discharge Inpt/Inobs (06/06/22 09:15) JANINE DECKER MD Jun 06, 2022 09:22
--- NOTE | 2022-06-06 09:24 | Short Stay Summary ---
History of Present Illness History of Present Illness Date of Admission Jun 05, 2022 at 23:50 Date of Discharge Attending Physician Alon Lazar MD Admitting Physician Admitting Physician: Janine Colin MD Attending Physician: Janine Colin MD Consult Allergies and Home Medications Allergies Coded Allergies: No Known Drug Allergies (Unverified , 02/12/17) Patient Home Medication List Aspirin (Aspirin EC) 81 Mg Tablet.dr, 81 MG PO DAILY, (Reported) Entered as Reported by: KRYSTAL KANG on 02/25/17816 Atorvastatin Calcium (Lipitor) 80 Mg Tablet, 80 MG PO HS, (Reported) Entered as Reported by: KRYSTAL KANG on 02/25/17816 Doxycycline Hyclate (Doxycycline Hyclate) 100 Mg Tablet, 100 MG PO BID Prescribed by: JANINE COLIN on 06/06/22918 Fish Oil/Dha/Epa (Fish Oil 1,200 mg Fish Oil) 1 Each Capsule, 1,200 MG PO DAILY, (Reported) Entered as Reported by: KRYSTAL KANG on 02/25/17816 Isosorbide Mononitrate (Isosorbide Mononitrate ER) 30 Mg Tab.er.24h, 30 MG PO DAILY, (Reported) Entered as Reported by: KRYSTAL KANG on 02/25/17816 Lactobac 41/B.bifid,Lactis/Fos (Ultimate Probiotic-10 25 Billn) 111 Mg (25 Bi llion Cell)-5 Mg Capsule, 1 EACH PO TID Prescribed by: JANINE COLIN on 06/06/22918 Metoprolol Tartrate (Metoprolol Tartrate) 25 Mg Tablet, 12.5 MG PO BID, (Reported) Entered as Reported by: KRYSTAL KANG on 02/25/17816 Multivit-Min/FA/Lycopene/Lut (Centrum Silver Tablet) 1 Each Tablet, 1 TAB PO HS, (Reported) Entered as Reported by: KRYSTAL KANG on 02/25/17816 Ticagrelor (Brilinta) 90 Mg Tablet, 90 MG PO BID, (Reported) Entered as Reported by: KRYSTAL KANG on 02/25/17816 Past Awqfrzm-Vsihwh-Gvoqlh Hx Patient Social History Recent Hopitalizations: No Have you traveled recently?: No Alcohol Use?: Yes Pt feels they are or have been: No Seasonal Allergies Seasonal Allergies: Yes Surgeries Yes (X4 BACK) Appendectomy Respiratory No Cardiovascular Yes Hypertension Neurological No Genitourinary No Gastrointestinal No Musculoskeletal Yes Back Injury, Chronic Back Pain Endocrine History of Endocrine Disorders: No HEENT History of HEENT Disorders: No Cancer No Psychosocial History of Psychiatric Problem: No Integumentary History of Skin or Integumenta: No Blood Transfusions History of Blood Disorders: No Adverse Reaction to a Blood Tr: No Family Medical History Significant Family History: No Pertinent Family Hx Physical Exam Vital Signs Vital Signs - First Documented 06/05/22 21:24 Temp 37.5 Pulse 114 Resp 18 B/P (MAP) 127/91 (103) Pulse Ox 98 O2 Delivery Room Air Capillary Refill : Less Than 3 Seconds Height, Weight, BMI Height: 5'8.00" Weight: 186lbs. 0.0oz. 84.956513md; 30.61 BMI Method:Stated Short Stay Diagnosis Conclusion Labs Laboratory Tests 06/05/22 21:13: Influenza Type A (RT-PCR) Not Detected, Influenza Type B (RT-PCR) Not Detected, SARS-CoV-2 RNA (RT-PCR) Not Detected 06/05/22 21:19: White Blood Count 7.6, Red Blood Count 4.89, Hemoglobin 14.5, Hematocrit 43, Mean Corpuscular Volume 88, Mean Corpuscular Hemoglobin 30, Mean Corpuscular Hemoglobin Concent 34, Red Cell Distribution Width 12.7, Platelet Count 212, Mean Platelet Volume 10.3, Immature Granulocyte % (Auto) 0, Neutrophils (%) (Auto) 79H, Lymphocytes (%) (Auto) 10L, Monocytes (%) (Auto) 7, Eosinophils (%) (Auto) 3, Basophils (%) (Auto) 0, Neutrophils # (Auto) 6.0, Lymphocytes # (Auto) 0.8L, Monocytes # (Auto) 0.5, Eosinophils # (Auto) 0.2, Basophils # (Auto) 0.0, Immature Granulocyte # (Auto) 0.0, Prothrombin Time 14.2, INR Comment 1.1, Activated Partial Thromboplast Time 36H, Sodium Level 138, Potassium Level 3.9, Chloride Level 103, Carbon Dioxide Level 26, Anion Gap 9, Blood Urea Nitrogen 20H, Creatinine 1.43H, Estimat Glomerular Filtration Rate 55, BUN/Creatinine Ratio 14, Glucose Level 123H, Calcium Level 9.7, Corrected Calcium 9.5, Total Bilirubin 0.7, Aspartate Amino Transf (AST/SGOT) 22, Alanine Aminotransferase (ALT/SGPT) 31, Alkaline Phosphatase 59, C-Reactive Protein High Sensitivity 3.09H, Total Protein 7.7, Albumin 4.3, Procalcitonin 0.08 06/05/22 21:50: Lactic Acid Level 1.16 06/05/22 22:30: Urine Color YELLOW, Urine Clarity CLEAR, Urine pH 6.5, Urine Specific [place] 1.015L, Urine Protein NEGATIVE, Urine Glucose (UA) NEGATIVE, Urine Ketones NEGATIVE, Urine Nitrite NEGATIVE, Urine Bilirubin NEGATIVE, Urine Urobilinogen 0.2, Urine Leukocyte Esterase NEGATIVE, Urine RBC (Auto) NEGATIVE, Urine RBC NONE, Urine WBC NONE, Urine Crystals NONE, Urine Bacteria NEGATIVE, Urine Casts NONE, Urine Mucus NEGATIVE, Urine Culture Indicated NO 06/06/22 05:27: White Blood Count 6.1, Red Blood Count 4.17L, Hemoglobin 12.3L, Hematocrit 37L, Mean Corpuscular Volume 88, Mean Corpuscular Hemoglobin 30, Mean Corpuscular Hemoglobin Concent 34, Red Cell Distribution Width 12.9, Platelet Count 172, Mean Platelet Volume 10.7, Immature Granulocyte % (Auto) 0, Neutrophils (%) (Auto) 69, Lymphocytes (%) (Auto) 19, Monocytes (%) (Auto) 8, Eosinophils (%) (Auto) 3, Basophils (%) (Auto) 0, Neutrophils # (Auto) 4.2, Lymphocytes # (Auto) 1.2, Monocytes # (Auto) 0.5, Eosinophils # (Auto) 0.2, Basophils # (Auto) 0.0, Immature Granulocyte # (Auto) 0.0, Sodium Level 141, Potassium Level 3.9, Chloride Level 110H, Carbon Dioxide Level 21, Anion Gap 10, Blood Urea Nitrogen 16, Creatinine 1.05, Estimat Glomerular Filtration Rate 80, BUN/Creatinine Ratio 15, Glucose Level 93, Calcium Level 8.7 JANINE COLIN MD Jun 06, 2022 09:24
[2022-06-06] MEDS ORDERED: KETOROLAC 30 MG/ML VIAL IVP NR (09:30)
[2022-06-06 11:15] VITALS: BP 119/81
== END 2022-06-06 09:15 | disposition home or self-care (01) ==
LOC: EDUNIT# 21:05 → ER 21:08 → 4TH 21:09 → UNDOADMOB 23:50 → INTOOBSV 23:50 → UNDODISOB 06-06 11:15
PROVIDERS: ADMIT Family Medicine; ATTEND Family Medicine
DX: A93.8 Other specified arthropod-borne viral fevers (principal); A41.9 Sepsis, unspecified organism
CPT/HCPCS: 71045; 80048; 80053; 81000; 83605; 84145; 85025 ×2; 85610; 85730; 86141; 86618; 86666 ×2; 86668; 86757 ×2; 87040; 87088; 87636; 96361 ×2; 96374; 96375; 96376; 99284; G0378; 36415